=== PATIENT | male | born 1990 | race Caucasian/White ===

== ENCOUNTER 2022-06-06 10:03 | Inpatient (IN) | payer MEDICAID, SELFPAY ==
[2022-06-06 10:14] VITALS: BP 104/59; PULSE 89; RESP 17; TEMP 36.6; O2SAT 100
[2022-06-06 10:44] LABS: Bilirubin Moderate (Negative); Blood Large (Negative); Clarity Cloudy (Clear); Glucose 100 mg/dL (Negative); Ketones Trace mg/dL (Negative); Leukocyte Esterase Small (Negative); Nitrite Positive (Negative); Specific Gravity >= 1.030 (1.005-1.025); pH 5.5 (5-8)
[2022-06-06 10:54] LABS: Bacteria Moderate HPF (Negative); C & S Indicated? Yes; Casts 0-2 Hyaline LPF (Negative); Crystals Negative HPF (Negative); Epithelial Cells Few HPF (Negative); Mucus Heavy (Negative); Other Cells Few Transitional (Negative); RBC >50 HPF (0-2)
--- NOTE | 2022-06-06 12:59 | DI.CT_ITS ---
Exam(s) CT RENAL COLIC WO EXAM: CT RENAL COLIC WO CLINICAL HISTORY: Right flank pain and Bladder pain. TECHNIQUE: Imaging Protocol: Axial computed tomography images with coronal and sagittal reformatted images were created and reviewed. CONTRAST MATERIAL: Noncontrast COMPARISON: No exams were available for comparison FINDINGS: ABDOMEN: Lung Bases: Normal where visualized. Liver: Normal attenuation. No measurable mass. Gallbladder and biliary tract: Status post cholecystectomy. No radiodense calculus or dilation. Pancreas: Normal density, no calcifications or inflammatory process. Spleen: Normal. Kidneys: Normal size, contour and axis. No radiodense stones or obstructive uropathy. No masses seen. Adrenal glands: No masses seen. Abdominal Aorta: Abdominal portion non-dilated. PELVIS: Bladder: Nearly empty. Thick walled. Some air within the bladder. Bowel: Some high density material seen in distal small bowel. Suture material at base of cecum. No obstruction or bowel wall thickening. Peritoneal cavity: No ascites, collection or mesenteric inflammatory response. Reproductive: Prostate normal in size. Bones: Within normal limits. IMPRESSION: Thick-walled bladder which contains some air. Findings could indicate cystitis. There is no evidenc e renal calculi or hydronephrosis. Results of this exam have been verbally communicated with the emergency department provider. RADIATION DOSE DELIVERED: 769.98mGy.cm Total DLP DATA REPOSITORY: All CT scans at this facility are submitted to the National Radiology Data Registry (NRDR) Dose Index Registry (DIR) with the [employer] (ACR). RADIATION OPTIMIZATION: All CT scans at this facility use at least one of these dose optimization te chniques: automated exposure control; mA and/or kV adjustment per patient size (includes targeted exa ms where dose is matched to clinical indication); or iterative reconstruction.
[2022-06-06 13:16] LABS: Abs Immature Grans 0.02 10^3/uL (0.0-0.06); Absolute Eosinophil Count 1.02 10^3/uL (0.0-0.7); Absolute Lymphocyte Count 1.63 10^3/uL (1.2-3.4); Absolute Monocyte Count 0.53 10^3/uL (0.1-0.8); Basophils % 1.3; Eosinophils % 13.6; HCT 40.9 % (40.0-50.0); HGB 13.8 g/dL (13.5-17.5); Immature Grans % 0.3; Lymphocytes % 21.7; MCH 30.6 pg (27.0-33.0); MCHC 33.7 % (32.0-36.0); MCV 91 fL (80-95); MPV 10.9 fL (8.0-11.0); Monocytes % 7.1; Platelet Count 294 10^3/uL (130-400); RBC 4.51 10^6/uL (4.36-5.78); RDW 14.4 % (11.8-14.1)
[2022-06-06 13:18] LABS: Lactate 2.9 mmol/L (0.6-1.4)
[2022-06-06 13:34] LABS: ALT 22 U/L (16-63); AST 13 U/L (15-37); Albumin 3.8 g/dL (3.4-5.0); Alkaline Phosphatase 93 U/L (46-116); Anion Gap 7.8 mmol/L (3-11); BUN 48 mg/dL (7-18); Bilirubin, Total 0.5 mg/dL (0.2-1.0); CO2 30.2 mmol/L (21.0-32.0); Calcium 8.3 mg/dL (8.5-10.1); Chloride 90 mmol/L (98-107); Estimated GFR 19.88 (mL/min/1.73m2); Potassium 5.4 mmol/L (3.5-5.1); Sodium 128 mmol/L (136-145); Total Protein 7.4 g/dL (6.4-8.2)
[2022-06-06 13:42] LABS: CREATININE 3.6 mg/dL (0.70-1.30); Glucose 613 mg/dL (74-106)
[2022-06-06] MEDS: Ondansetron 4 MG/2 ML VIAL IVP (13:57)
[2022-06-06] MEDS: cefTRIAXone 1 GM/50 ML BAG IVPB (13:58)
[2022-06-06] MEDS: HYDROmorphone 2 MG/ML VIAL 1 MG IVP (14:00)
--- NOTE | 2022-06-06 14:05 | W.ED.GENAD ---
Discharge Plan Disposition Patient Disposition: [facility] INPATIENT Condition: Poor Discharge Details Clinical Impression: Acute UTI, HERVE (acute kidney injury), Hyperglycemia due to type 1 diabetes mellitus Admit Date/Time: 06/06/22 14:33 Admit Provider: Obed Kaur Attending Provider: Obed Kaur Primary Care Provider: None,None ED Provider: Donavon Aguero Discharge Data Discharge Date/Time-TO BE ENTERED AT DEPARTURE: 06/06/22 15:12 Medical Decision Making Patient presenting to the emergency department for chief complaint of significant suprapubic pain and discomfort. Patient reports that he has had blood in his urine intermittently for months after getting released from correction. He stated this started when he had surgery on his left lower extremity due to infection that was complicated by his diabetes. After that he had difficulty urinating and needed to self cath intermittently. Over the last 3 days he has noted significant worsening of lower abdominal pain, radiating into his flank and some blood in the urine. He did not take any of his diabetic medications this morning due to not feeling well. Physical exam shows mild right CVA tenderness with significant suprapubic tenderness causing patient to writhe in pain when attempting to lie flat. Exam is otherwise nondiagnostic. We will plan on checking labs and CT imaging Reviewed patient's labs which show no leukocytosis on CBC otherwise nondiagnostic, lactate of 2.9. Potassium was 5.4, normal anion gap, elevated BUN and creatinine with a GFR of 18, glucose of 619 otherwise nondiagnostic CMP. Urinalysis shows concentrated urine with trace urine ketones, nitrites, leukocyte Estrace with greater than 50 RBCs and 10-20 WBCs and bacteria present. Spoke with radiologist in regards to CT imaging which shows bladder wall thickening and findings consistent with cystitis but otherwise no other renal or intra-abdominal findings were noted. I am concerned for significant infection with patient's urinary findings and cystitis seen on CT imaging along with patient's lactate and CVA tenderness. I feel that patient is also hyperglycemic without DKA. We will start patient on insulin, ceftriaxone, and IV fluids. Contacted hospitalist for admission which he agreed for admission and requested we stop insulin drip due to no DKA but recommended to give patient his daily Lantus and IV push of normal insulin. Also requested for blood cultures which were ordered. COVID was ordered but pending HPI General Mode of arrival: ambulatory. Date/Time Provider Initiated Documentation: 06/06/22 10:22. Limitations to Documentation: no limitations. Information obtained by: patient and RN notes reviewed. History of Present Illness 32 year old M presents to the emergency department with the chief complaint of lower abd pain , described as severe, with intensity rated at >10. Quality is described as sharp and constant, and is localized to the abdomen. Patient reports radiation to back. Patient started experiencing this day(s) (3) and it has been constant. No relieving factors improve symptom(s), No exacerbating factors reported . Patient notes loss of appetite, malaise and nausea/vomiting. Patient did receive the following treatments prior to arrival, none Related Data Home Medications Medication Instructions Recorded Confirmed insulin NPH isoph U-100 human 100 See Rx Instructions .Route .COMPLEX 06/06/22 06/06/22 unit/mL subcutaneous cartridge insulin glargine 100 unit/mL (3 30 unit subcut BID 06/06/22 06/06/22 mL) subcutaneous pen (Lantus Solostar U-100 Insulin) Allergies Allergy/AdvReac Type Severity Reaction Status Date / Time enoxaparin [From Lovenox] AdvReac Mild Itching Unverified 06/06/22 10:23 ketorolac [From Toradol] AdvReac Mild Itching Unverified 06/06/22 10:23 tramadol AdvReac Mild Itching Unverified 06/06/22 10:23 General Stated Complaint: Urinary SAQIB: 3 Review of Systems Constitutional Constitutional: Denies body ache(s), Reports chills, Denies fever(s), Reports malaise and Denies weakness Cardiovascular Cardiovascular: Denies chest pain Respiratory Respiratory: Reports system reviewed and no additional complaints, except as documented Gastrointestinal Gastrointestinal: Denies abdominal pain, Denies nausea and Denies vomiting Genitourinary Genitourinary: Reports as per HPI, Denies hematuria, Reports difficulty urinating, Reports dysuria, Reports urinary urgency and Reports other (Change in urine color) Integumentary/Breasts Skin/Breast: Denies rash Neurologic Neurologic: Denies confusion and Denies weakness Psychiatric Psychiatric: Denies confusion PFSH All Active Problems (Updated 06/06/22 @ 17:31 by Obed Kaur MD) Bladder spasm (Acute) Cystitis (Acute) 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 (Acute) Acute UTI (Acute) HERVE (acute kidney injury) (Acute) Hyperglycemia due to type 1 diabetes mellitus (Acute) Medical History Diabetic retinopathy Surgical History S/P foot surgery, left Status post amputation of toe of left foot Family History Father Alcohol use disorder Mother Multiple myeloma Hypothyroidism (acquired) Sister Hypothyroidism (acquired) Maternal Grandfather , age 60 from [place] Heart disease Social History Smoking/Tobacco Use Status: Current every day Tobacco Type: cigarettes Smoking risk assessment performed?: Yes Alcohol Intake: former Drug use: Daily Substance use type: marijuana and other Details: he denies use of heroin or cocaine or other illicit recreational drugs Household members: family and other Details: lives w/ brother and maternal grandmother in [place], [place] Housing: house Do you feel safe at home: Yes Do you feel safe in your relationship?: Yes Exam Const General: cooperative Orientation: alert, awake and oriented x3 Resp Effort & Inspection: normal respiratory effort and able to speak in complete sentences Auscultation: clear to auscultation bilaterally Cardio Rate: regular rate Rhythm: regular rhythm Heart Sounds: S1 normal and S2 normal GI Palpation: soft, not firm, guarding, no masses, no pulsatile masses and tender suprapubicly Auscultation: normal bowel sounds General: CVA tenderness on the right (mild) Back/Spine/Pelvis Back: CVA tenderness (mild right) Neuro General: patient alert, patient awake, patient oriented x3, gait normal and moves all extremities Course Vital Signs Vital signs: Vital Signs Temperature 36.6 C 06/06/22 10:14 Pulse 89 06/06/22 10:14 Respiratory Rate 17 06/06/22 10:14 Blood Pressure 104/59 L 06/06/22 10:14 Pulse Oximetry 100 06/06/22 10:14 Temperature 36.6 C 06/06/22 10:14 Temperature Source Temporal Artery Scan 06/06/22 10:14 Pulse 89 06/06/22 10:14 Respiratory Rate 17 06/06/22 10:14 Respiratory Effort Non-Labored 06/06/22 10:20 Blood Pressure 104/59 L 06/06/22 10:14 Blood Pressure Position Sitting 06/06/22 10:14 Pulse Oximetry 100 06/06/22 10:14 Oxygen Delivery Method Room Air 06/06/22 10:14 Oxygen Flow Rate 0 06/06/22 10:14 Pain Level 8 06/06/22 14:00 Lab/Test Results Lab/Test Results: 06/06/22 10:37 Urine - Reflex from Ua Urine Culture - Pending Laboratory Tests Range/Units 06/06/22 06/06/22 06/06/22 10:37 13:12 13:12 WBC (4.4-10.8) 10^3/uL RBC (4.36-5.78) 10^6/uL Hgb (13.5-17.5) g/dL Hct (40.0-50.0) % MCV (80-95) fL MCH (27.0-33.0) pg MCHC (32.0-36.0) % RDW (11.8-14.1) % Plt Count (130-400) 10^3/uL MPV (8.0-11.0) fL Immature Gran % Neutrophils % Lymphocytes % Monocytes % Eosinophils % Basophils % Nucleated RBC % (0.0-0.3) % Absolute Neutrophils (1.2-6.7) 10^3/uL Absolute Lymphocytes (1.2-3.4) 10^3/uL Absolute Monocytes (0.1-0.8) 10^3/uL Absolute Eosinophils (0.0-0.7) 10^3/uL Absolute Basophils (0.0-0.2) 10^3/uL VBG Lactate (0.6-1.4) mmol/L 2.9 H* Sodium (136-145) mmol/L 128 L Potassium (3.5-5.1) mmol/L 5.4 H Chloride (98-107) mmol/L 90 L Carbon Dioxide (21.0-32.0) mmol/L 30.2 Anion Gap (3-11) mmol/L 7.8 BUN (7-18) mg/dL 48 H Creatinine (0.70-1.30) mg/dL 3.6 H* Estimated GFR/1.73 m2 (mL/min/1.73m2) 19.88 Glucose (74-106) mg/dL 613 H* Calcium (8.5-10.1) mg/dL 8.3 L Total Bilirubin (0.2-1.0) mg/dL 0.5 AST (15-37) U/L 13 L ALT (16-63) U/L 22 Alkaline Phosphatase (46-116) U/L 93 Total Protein (6.4-8.2) g/dL 7.4 Albumin (3.4-5.0) g/dL 3.8 Urine Color (Yellow) Yellow Urine Clarity (Clear) Cloudy Urine pH (5-8) 5.5 Ur Specific [place] (1.005-1.025) >= 1.030 H Urine Protein (Negative) mg/dL >=300 H Urine Ketones (Negative) mg/dL Trace H Urine Blood (Negative) Large H Urine Nitrite (Negative) Positive H Urine Bilirubin (Negative) Moderate H Urine Urobilinogen (Up TO 0.2) EU/dL 1.0 H Ur Leukocyte Esterase (Negative) Small H Urine RBC (0-2) HPF >50 H Urine WBC (0-5) HPF 10-20 H Ur Epithelial Cells (Negative) HPF Few Urine Crystals (Negative) HPF Negative Urine Bacteria (Negative) HPF Moderate Urine Casts (Negative) LPF 0-2 Hyaline Urine Mucus (Negative) Heavy Urine Other (Negative) Few Transitional Ur Culture Indicated? Yes Urine Glucose (Negative) mg/dL 100 Range/Units 06/06/22 13:12 WBC (4.4-10.8) 10^3/uL 7.50 RBC (4.36-5.78) 10^6/uL 4.51 Hgb (13.5-17.5) g/dL 13.8 Hct (40.0-50.0) % 40.9 MCV (80-95) fL 91 MCH (27.0-33.0) pg 30.6 MCHC (32.0-36.0) % 33.7 RDW (11.8-14.1) % 14.4 H Plt Count (130-400) 10^3/uL 294 MPV (8.0-11.0) fL 10.9 Immature Gran % 0.3 Neutrophils % 56.0 Lymphocytes % 21.7 Monocytes % 7.1 Eosinophils % 13.6 Basophils % 1.3 Nucleated RBC % (0.0-0.3) % 0.0 Absolute Neutrophils (1.2-6.7) 10^3/uL 4.20 Absolute Lymphocytes (1.2-3.4) 10^3/uL 1.63 Absolute Monocytes (0.1-0.8) 10^3/uL 0.53 Absolute Eosinophils (0.0-0.7) 10^3/uL 1.02 H Absolute Basophils (0.0-0.2) 10^3/uL 0.10 VBG Lactate (0.6-1.4) mmol/L Sodium (136-145) mmol/L Potassium (3.5-5.1) mmol/L Chloride (98-107) mmol/L Carbon Dioxide (21.0-32.0) mmol/L Anion Gap (3-11) mmol/L BUN (7-18) mg/dL Creatinine (0.70-1.30) mg/dL Estimated GFR/1.73 m2 (mL/min/1.73m2) Glucose (74-106) mg/dL Calcium (8.5-10.1) mg/dL Total Bilirubin (0.2-1.0) mg/dL AST (15-37) U/L ALT (16-63) U/L Alkaline Phosphatase (46-116) U/L Total Protein (6.4-8.2) g/dL Albumin (3.4-5.0) g/dL Urine Color (Yellow) Urine Clarity (Clear) Urine pH (5-8) Ur Specific [place] (1.005-1.025) Urine Protein (Negative) mg/dL Urine Ketones (Negative) mg/dL Urine Blood (Negative) Urine Nitrite (Negative) Urine Bilirubin (Negative) Urine Urobilinogen (Up TO 0.2) EU/dL Ur Leukocyte Esterase (Negative) Urine RBC (0-2) HPF Urine WBC (0-5) HPF Ur Epithelial Cells (Negative) HPF Urine Crystals (Negative) HPF Urine Bacteria (Negative) HPF Urine Casts (Negative) LPF Urine Mucus (Negative) Urine Other (Negative) Ur Culture Indicated? Urine Glucose (Negative) mg/dL PAWSS Have you Been Recently Intoxicated or Drunk Within the Last 30 days?: No Have you Ever Experienced Previous Episodes of Alcohol Withdrawal?: No Have you ever Experienced Withdrawal Seizures?: No Have you ever Experienced Delirium Tremens(DT)s?: No Have you ever undergone Alcohol Rehabilitation Treatment (i.e, inpt ot outpatient treatment programs)?: No Have you ever Experienced Blackouts?: No Have you ever Combined Alcohol with other Downers within the last 90 days?: No Have you ever Combined Alcohol with any other Substance of Abuse during the last 90 days?: No Result: 0
[2022-06-06] MEDS: Normal Saline 500 ML IV (14:11)
[2022-06-06 14:27] LABS: Source Nasal/Nares
[2022-06-06] MEDS: Insulin REGULAR-Human 100 UNITS/ML UNIT 15 UNITS IV (14:55)
[2022-06-06] MEDS: Insulin Glargine 300 UNITS/3 ML PEN 30 UNITS SC (14:55)
[2022-06-06 15:01] LABS: COVID-19 PCR Negative (Negative)
[2022-06-06 15:16] LABS: Hemoglobin A1C 9.9 % (<5.7)
[2022-06-06] MEDS: Lactated Ringers 1,000 ML 500 ML IV (15:53)
[2022-06-06] MEDS: Heparin 5,000 UNITS/ML VIAL 5000 UNITS SC ×2 (15:54→23:42)
[2022-06-06] MEDS: oxyCODONE 5 MG TAB PO ×2 (15:54→20:00)
[2022-06-06 16:00] VITALS: BP 110/67; PULSE 90; RESP 16; TEMP 36.2; O2SAT 96
[2022-06-06 16:39] LABS: Anion Gap 14.4 mmol/L (3-11); BUN 51 mg/dL (7-18); CO2 20.6 mmol/L (21.0-32.0); Calcium 8.5 mg/dL (8.5-10.1); Chloride 101 mmol/L (98-107); Estimated GFR 18.67 (mL/min/1.73m2); Glucose 319 mg/dL (74-106); Potassium 5.5 mmol/L (3.5-5.1); Sodium 136 mmol/L (136-145)
--- NOTE | 2022-06-06 16:39 | HPE_ITS ---
Date of service: 06/06/22 Time of Service: 16:39 Assessment and Plan Assessment and plan (1) Acute UTI: Status: Acute Assessment and plan: patient reports that he has had to self cath for last few days d/t difficulty initiating his voiding and d/t painful spasms. He has been voiding dark brown urine along w/ blood. No fever or chills. Prior to this he had to self cath while in intermediate for 15 months after he had multiple operations on his left foot and ankle and subsequent amputation of his left 5th toe. He states that after he got out of intermediate he stopped taking the medications he was on in intermediate (Rodger, Tanesha) and he was able to void fine until recently. UA is c/w w/ UTI (positive nitrites, small leukocyte esterase, large amount of blood, 10 to 20 WBC/HPF, moderate bacteria); blood cultures have been sent. Patient begun on Ceftriaxone 1 gm IVPB while in the ER. Will continue the same. I have added O&B suppository and ditropan for his bladder spasm. I will add pyridium and have ordered oxycodone for his pain. I do not feel he has pyelonephritis. I am not impressed w/ his flank pain as it is very superficial, bilateral and no CT evidence for stones or perinephric stranding nor abscess. the bladder wall is thickened c/w chronic urinary retention/prior cystitis; the air in the bladder probably is d/t introduction from straight catheterization which he has had to perform recently. I will check renal US in the a.m. I did a bladder scan and he has no urine in his bladder at present. We will hydrate him overnight w/ LR. We have no urology consultation available this week, so if he developes mechanical obstruction i.e. can not void/can not catheterize or gets ureteral obstruction then he will need transfer to tertiary care center for urology care. (2) Cystitis: Status: Acute Assessment and plan: as above (3) Bladder spasm: Status: Acute Assessment and plan: as above (4) HEVRE (acute kidney injury): Status: Acute Assessment and plan: unclear as to how much is chronic kidney disease from DM type 1, how much is from chronic urinary retention, although he has no hydronephrosis which one would expect to develope from months to couple years of self catheterization if he were having chronic large urinary residuals. (5) Hyperglycemia due to type 1 diabetes mellitus: Status: Acute Assessment and plan: incipient DKA as evidenced by trace ketones in urine however AG was normal and bicarbonate is normal. Hyperglycemia driven by fact that he did not take his insulin this morning. Ketonuria also may be d/t he has not eaten anything in the past day d/t nausea Review of Systems All systems reviewed & are unremarkable except as noted in HPI and below Constitutional Constitutional: Denies chills, Denies fever(s) and Reports poor appetite ENT Ears, Nose, Mouth, and Throat: Reports system reviewed and no additional complaints, except as documented Cardiovascular Cardiovascular: Reports system reviewed and no additional complaints, except as documented Respiratory Respiratory: Reports system reviewed and no additional complaints, except as documented Gastrointestinal Gastrointestinal: Reports abdominal pain (suprapubic) Genitourinary Genitourinary: Reports hematuria, Reports dysuria, Reports urinary hesitancy and Reports urinary urgency Musculoskeletal Musculoskeletal: Reports system reviewed and no additional complaints, except as documented Integumentary/Breasts Skin/Breast: Reports system reviewed and no additional complaints, except as documented Neurologic Neurologic: Reports paresthesias (both feet) Endocrine Endocrine: Reports system reviewed and no additional complaints, except as documented Hematologic/Lymphatic Hematologic/Lymphatic: Reports system reviewed and no additional complaints, except as documented PFSH All Active Problems (Updated 06/06/22 @ 17:31 by Obed Kaur MD) Bladder spasm (Acute) Cystitis (Acute) 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 (Acute) Acute UTI (Acute) HERVE (acute kidney injury) (Acute) Hyperglycemia due to type 1 diabetes mellitus (Acute) Medical History Diabetic retinopathy Surgical History S/P foot surgery, left Status post amputation of toe of left foot Family History Father Alcohol use disorder Mother Multiple myeloma Hypothyroidism (acquired) Sister Hypothyroidism (acquired) Maternal Grandfather , age 60 from [place] Heart disease Social History Smoking/Tobacco Use Status: Current every day Tobacco Type: cigarettes Smoking risk assessment performed?: Yes Alcohol Intake: former Drug use: Daily Substance use type: marijuana and other Details: he denies use of heroin or cocaine or other illicit recreational drugs Household members: family and other Details: lives w/ brother and maternal grandmother in [place], [place] Housing: house Do you feel safe at home: Yes Do you feel safe in your relationship?: Yes Meds Allergies and Home Medications Allergies Allergy/AdvReac Type Severity Reaction Status Date / Time enoxaparin [From Lovenox] AdvReac Mild Itching Unverified 06/06/22 10:23 ketorolac [From Toradol] AdvReac Mild Itching Unverified 06/06/22 10:23 tramadol AdvReac Mild Itching Unverified 06/06/22 10:23 Home Medications Medication Instructions Recorded Confirmed Type insulin NPH isoph U-100 human 100 See Rx Instructions .Route .COMPLEX 06/06/22 06/06/22 History unit/mL subcutaneous cartridge insulin glargine 100 unit/mL (3 30 unit subcut BID 06/06/22 06/06/22 History mL) subcutaneous pen (Lantus Solostar U-100 Insulin) Exam Narrative Exam Narrative: Young white male sitting up in bed in distress d/t suprapubic pain, he is leaning over holding his lower abdomen HEENT: remarkable for poor dentition, multiple missing teeth and dental caries; no foul odor, no exudate, mucous membranes are moist neck: supple, non-tender, no adenopathy, no thyromegaly; normal pulses Lungs: clear to auscultation Heart: RRR w/ out murmur, rub, gallop or thrill; normal apical impulse Abdomen: normal bowel sounds, nondistended, no organomegaly; voluntary gu arding; no rebound tenderness; very tender over suprapubic area; left and right flank were not tender when I was auscultating his lungs and I happened to place my stethoscope below the CV angle however when he was aware that I was purposely palpating for CVA tenderness he became tender bilaterally Legs/feet: no cyanosis or edema; pedal pulses intact; left foot w/ multiple scars over lateral tarsal and he has amputation site at 5th MP joint. no open sores Neuro: intact motor in all 4's, markedly decreased sensation over toes of both feet, he can tell that I am touching him but he can not discriminate which toe I am touching. Results Imaging Abdomen CT scan report/results: report reviewed (IMPRESSION: Thick- walled bladder which contains some air. Findings could indicate cystitis. There is no evidence renal calculi or hydronephrosis.) Labs Result diagrams: 06/06/22 13:12 06/06/22 16:24 Labs: Laboratory Results - last 24 hr 06/06/22 06/06/22 06/06/22 10:37 13:12 13:12 WBC RBC Hgb Hct MCV MCH MCHC RDW Plt Count MPV Immature Gran % Neutrophils % Lymphocytes % Monocytes % Eosinophils % Basophils % Nucleated RBC % Absolute Neutrophils Absolute Lymphocytes Absolute Monocytes Absolute Eosinophils Absolute Basophils VBG Lactate 2.9 H* Sodium 128 L Potassium 5.4 H Chloride 90 L Carbon Dioxide 30.2 Anion Gap 7.8 BUN 48 H Creatinine 3.6 H* Estimated GFR/1.73 m2 19.88 Glucose 613 H* Hemoglobin A1c Calcium 8.3 L Total Bilirubin 0.5 AST 13 L ALT 22 Alkaline Phosphatase 93 Total Protein 7.4 Albumin 3.8 Urine Color Yellow Urine Clarity Cloudy Urine pH 5.[address] [place] >= 1.030 H Urine Protein >=300 H Urine Ketones Trace H Urine Blood Large H Urine Nitrite Positive H Urine Bilirubin Moderate H Urine Urobilinogen 1.0 H Ur Leukocyte Esterase Small H Urine RBC >50 H Urine WBC 10-20 H Ur Epithelial Cells Few Urine Crystals Negative Urine Bacteria Moderate Urine Casts 0-2 Hyaline Urine Mucus Heavy Urine Other Few Transitional Ur Culture Indicated? Yes Urine Glucose 100 COVID-19 Source SARS-CoV-2 (PCR) 06/06/22 06/06/22 06/06/22 13:12 13:12 14:25 WBC 7.50 RBC 4.51 Hgb 13.8 Hct 40.9 MCV 91 MCH 30.6 MCHC 33.7 RDW 14.4 H Plt Count 294 MPV 10.9 Immature Gran % 0.3 Neutrophils % 56.0 Lymphocytes % 21.7 Monocytes % 7.1 Eosinophils % 13.6 Basophils % 1.3 Nucleated RBC % 0.0 Absolute Neutrophils 4.20 Absolute Lymphocytes 1.63 Absolute Monocytes 0.53 Absolute Eosinophils 1.02 H Absolute Basophils 0.10 VBG Lactate Sodium Potassium Chloride Carbon Dioxide Anion Gap BUN Creatinine Estimated GFR/1.73 m2 Glucose Hemoglobin A1c 9.9 H Calcium Total Bilirubin AST ALT Alkaline Phosphatase Total Protein Albumin Urine Color Urine Clarity Urine pH Ur Specific [place] Urine Protein Urine Ketones Urine Blood Urine Nitrite Urine Bilirubin Urine Urobilinogen Ur Leukocyte Esterase Urine RBC Urine WBC Ur Epithelial Cells Urine Crystals Urine Bacteria Urine Casts Urine Mucus Urine Other Ur Culture Indicated? Urine Glucose COVID-19 Source Nasal/Nares SARS-CoV-2 (PCR) Negative Last Vital Signs Temp 36.6 C 06/06/22 10:14 Pulse 89 06/06/22 10:14 Resp 17 06/06/22 10:14 BP 104/59 L 06/06/22 10:14 Pulse Ox 100 06/06/22 10:14 PAWSS Have you Been Recently Intoxicated or Drunk Within the Last 30 days?: No Have you Ever Experienced Previous Episodes of Alcohol Withdrawal?: No Have you ever Experienced Withdrawal Seizures?: No Have you ever Experienced Delirium Tremens(DT)s?: No Have you ever undergone Alcohol Rehabilitation Treatment (i.e, inpt ot outpatient treatment programs)?: No Have you ever Experienced Blackouts?: No Have you ever Combined Alcohol with other Downers within the last 90 days?: No Have you ever Combined Alcohol with any other Substance of Abuse during the last 90 days?: No Result: 0
[2022-06-06 16:42] LABS: CREATININE 3.8 mg/dL (0.70-1.30)
[2022-06-06] MEDS: Insulin Aspart 300 UNITS/3 ML PEN SC ×2 (17:14→17:29)
[2022-06-06] MEDS: Oxybutynin 5 MG TAB PO (17:28)
[2022-06-06 18:00] LABS: Lab Add On Test DONE
[2022-06-06 18:03] LABS: Creatine Kinase 200 U/L (39-308)
[2022-06-06 18:05] LABS: ESR 20 mm/hr (0-15)
[2022-06-06 19:33] VITALS: BP 89/55; PULSE 79; RESP 17; TEMP 36.9; O2SAT 97
[2022-06-06] MEDS: Acetaminophen 325 MG TAB PO (20:00)
[2022-06-06] MEDS: Lactated Ringers 1,000 ML 200 ML IV (20:04)
[2022-06-06 20:13] LABS: Lab Add On Test DONE
[2022-06-06] MEDS: Phenazopyridine 100 MG TAB PO (20:15)
[2022-06-06 20:36] LABS: Anion Gap 5.5 mmol/L (3-11); BUN 49 mg/dL (7-18); CO2 30.5 mmol/L (21.0-32.0); Calcium 8.2 mg/dL (8.5-10.1); Chloride 100 mmol/L (98-107); Estimated GFR 19.26 (mL/min/1.73m2); Glucose 126 mg/dL (74-106); Potassium 4.2 mmol/L (3.5-5.1); Sodium 136 mmol/L (136-145)
[2022-06-06 20:41] LABS: CREATININE 3.7 mg/dL (0.70-1.30)
[2022-06-06 20:42] LABS: C-Reactive Protein 0.35 mg/dL (0.0-0.3); PHOSPHORUS 3.3 mg/dL (2.6-4.7)
[2022-06-06 20:48] VITALS: BP 100/80
[2022-06-06 21:00] LABS: Procalcitonin 0.1 ng/mL
[2022-06-06 22:53] VITALS: BP 110/60; PULSE 74; RESP 18; TEMP 36; O2SAT 99
[2022-06-06] MEDS: HYDROmorphone 2 MG TAB PO (23:41)
[2022-06-07] VITALS (10 sets, daily range): BP systolic 81–135; BP diastolic 47–87; PULSE 60–77; RESP 16–18; TEMP 35.4–36.5; O2SAT 97–100
[2022-06-07] MEDS: Normal Saline Flush 10 ML SYR IVP ×5 (00:43→15:33)
[2022-06-07] MEDS: Lactated Ringers 1,000 ML 200 ML IV ×3 (00:44→17:02)
[2022-06-07] MEDS: HYDROmorphone 2 MG TAB PO ×5 (03:48→21:05)
[2022-06-07 05:07] LABS: Bilirubin Small (Negative); Blood Moderate (Negative); Clarity Sl Cloudy (Clear); Glucose 100 mg/dL (Negative); Ketones Trace mg/dL (Negative); Leukocyte Esterase Large (Negative); Nitrite Positive (Negative)
[2022-06-07 05:15] LABS: Bacteria Few HPF (Negative); Epithelial Cells Few HPF (Negative)
[2022-06-07 05:16] LABS: C & S Indicated? Yes; Casts 0-2 Hyaline LPF (Negative); Crystals Negative HPF (Negative); Mucus Negative (Negative); Other Cells Rare Renal (Negative)
--- NOTE | 2022-06-07 07:00 | DI.US_ITS ---
Exam(s) US RENAL EXAM: US RENAL CLINICAL HISTORY: UTI, flank pain, suprapubic pain. TECHNIQUE: Alcantar scale, color and spectral Doppler were used. COMPARISON: CT CT RENAL COLIC WO from 06/06/2022 FINDINGS: Renal size in cm: Right: 11 left: 12.4 Echogenicity: Normal Hydronephrosis: No Cyst or mass: No Nephrolithiasis: No Bladder:Fajardo catheter balloon noted, decompressing the bladder. Bladder is not well evaluated. Анна arent bladder wall thickening. IMPRESSION: Thick-walled bladder which is not well evaluated due to lack of distension. The kidneys appear leandro l. DATA REPOSITORY:
[2022-06-07 07:17] LABS: Abs Immature Grans 0.01 10^3/uL (0.0-0.06); Absolute Basophil Count 0.07 10^3/uL (0.0-0.2); Absolute Eosinophil Count 0.76 10^3/uL (0.0-0.7); Absolute Lymphocyte Count 2.04 10^3/uL (1.2-3.4); Absolute Monocyte Count 0.38 10^3/uL (0.1-0.8); Absolute Neutrophil Count 2.47 10^3/uL (1.2-6.7); Basophils % 1.2; Eosinophils % 13.3; HCT 34.4 % (40.0-50.0); HGB 11.4 g/dL (13.5-17.5); Immature Grans % 0.2; Lymphocytes % 35.6; MCH 30.5 pg (27.0-33.0); MCHC 33.1 % (32.0-36.0); MCV 92 fL (80-95); MPV 10.8 fL (8.0-11.0); Monocytes % 6.6; Neutrophils % 43.1; Platelet Count 216 10^3/uL (130-400); RBC 3.74 10^6/uL (4.36-5.78); RDW 14.6 % (11.8-14.1); RDW-SD 49.2 fL; WBC 5.73 10^3/uL (4.4-10.8)
[2022-06-07 07:25] LABS: Anion Gap 2.5 mmol/L (3-11); BUN 49 mg/dL (7-18); CO2 33.5 mmol/L (21.0-32.0); CREATININE 3.2 mg/dL (0.70-1.30); Calcium 7.7 mg/dL (8.5-10.1); Chloride 100 mmol/L (98-107); Estimated GFR 22.77 (mL/min/1.73m2); Glucose 184 mg/dL (74-106); Potassium 4.3 mmol/L (3.5-5.1); Sodium 136 mmol/L (136-145)
--- NOTE | 2022-06-07 07:55 | W.PM.PROGNOT ---
Date of Service Date of service: 06/07/22 Time of Service: 07:55 Assessment and Plan Assessment and plan (1) Acute UTI: Status: Acute Assessment and plan: Urinalysis consistent with UTI. Renal CT yesterday did not show any hydronephrosis or stones. Bladder scan shows 200 mL in his urine. I think he is still very dehydrated and will resume IV fluids. We will check a formal renal ultrasound today. Continue treatment of his bladder spasms with narcotic analgesics and opium and belladonna suppositories and Ditropan. Professional time spent interviewing and examining patient, discussion of goals of care with hospital team (care management, nursing and consulting professionals) was 30 minutes. (2) Cystitis: Status: Acute Assessment and plan: as above (3) Bladder spasm: Status: Acute Assessment and plan: as above (4) HERVE (acute kidney injury): Status: Acute Assessment and plan: unclear as to how much is chronic kidney disease from DM type 1, how much is from chronic urinary retention, although he has no hydronephrosis which one would expect to develope from months to couple years of self catheterization if he were having chronic large urinary residuals. Check formal renal ultrasound. (5) Hyperglycemia due to type 1 diabetes mellitus: Status: Acute Assessment and plan: Blood sugars are improved morning glucose this morning 157. He did get hypoglycemic last night down to 60. Continue basal bolus insulin along with meal coverage. He is currently on 2 units of NovoLog per 10 g of carbohydrates for meal coverage. He is on Lantus 30 units twice a day he has NovoLog sliding scale per insulin resistant level. Repeat labs this morning show resolution of his anion gap. Continue to monitor blood sugars before meals and at bedtime. Subjective Subjective Interval history since last seen: Patient still have significant suprapubic discomfort. His oxycodone was switched to hydromorphone. He only put out 50 mL of urine overnight. He still been doing self-catheterization. I have asked him to allow nursing to put in a Fajardo catheter. Bladder scan this morning demonstrated 200 mL of urine in his bladder. Renal ultrasound has been ordered. Exam Narrative Exam Narrative: Young white male sitting up in bed when heating pad over his suprapubic area. Lungs are clear to auscultation Heart is regular rate and rhythm Abdomen soft nondistended normal bowel sounds with moderate suprapubic tenderness no palpable masses. Objective Last Vital Signs Temp 36.0 C L 06/07/22 07:36 Pulse 65 06/07/22 07:36 Resp 17 06/07/22 07:36 BP 101/67 06/07/22 07:36 Pulse Ox 99 06/07/22 07:36 Laboratory Results - last 24 hr 06/06/22 06/06/22 06/06/22 10:37 13:12 13:12 WBC RBC Hgb Hct MCV MCH MCHC RDW Plt Count MPV Immature Gran % Neutrophils % Lymphocytes % Monocytes % Eosinophils % Basophils % Nucleated RBC % Absolute Neutrophils Absolute Lymphocytes Absolute Monocytes Absolute Eosinophils Absolute Basophils ESR VBG Lactate 2.9 H* Sodium 128 L Potassium 5.4 H Chloride 90 L Carbon Dioxide 30.2 Anion Gap 7.8 BUN 48 H Creatinine 3.6 H* Estimated GFR/1.73 m2 19.88 Glucose 613 H* Hemoglobin A1c Calcium 8.3 L Phosphorus Total Bilirubin 0.5 AST 13 L ALT 22 Alkaline Phosphatase 93 Creatine Kinase C-Reactive Protein Total Protein 7.4 Albumin 3.8 Procalcitonin Urine Color Yellow Urine Clarity Cloudy Urine pH 5.5 Ur Specific Staples >= 1.030 H Urine Protein >=300 H Urine Ketones Trace H Urine Blood Large H Urine Nitrite Positive H Urine Bilirubin Moderate H Urine Urobilinogen 1.0 H Ur Leukocyte Esterase Small H Urine RBC >50 H Urine WBC 10-20 H Ur Epithelial Cells Few Urine Crystals Negative Urine Bacteria Moderate Urine Casts 0-2 Hyaline Urine Mucus Heavy Urine Other Few Transitional Ur Culture Indicated? Yes Urine Glucose 100 COVID-19 Source SARS-CoV-2 (PCR) Add-On Test Request 06/06/22 06/06/22 06/06/22 13:12 13:12 13:12 WBC 7.50 RBC 4.51 Hgb 13.8 Hct 40.9 MCV 91 MCH 30.6 MCHC 33.7 RDW 14.4 H Plt Count 294 MPV 10.9 Immature Gran % 0.3 Neutrophils % 56.0 Lymphocytes % 21.7 Monocytes % 7.1 Eosinophils % 13.6 Basophils % 1.3 Nucleated RBC % 0.0 Absolute Neutrophils 4.20 Absolute Lymphocytes 1.63 Absolute Monocytes 0.53 Absolute Eosinophils 1.02 H Absolute Basophils 0.10 ESR 20 H VBG Lactate Sodium Potassium Chloride Carbon Dioxide Anion Gap BUN Creatinine Estimated GFR/1.73 m2 Glucose Hemoglobin A1c 9.9 H Calcium Phosphorus Total Bilirubin AST ALT Alkaline Phosphatase Creatine Kinase C-Reactive Protein Total Protein Albumin Procalcitonin Urine Color Urine Clarity Urine pH Ur Specific Staples Urine Protein Urine Ketones Urine Blood Urine Nitrite Urine Bilirubin Urine Urobilinogen Ur Leukocyte Esterase Urine RBC Urine WBC Ur Epithelial Cells Urine Crystals Urine Bacteria Urine Casts Urine Mucus Urine Other Ur Culture Indicated? Urine Glucose COVID-19 Source SARS-CoV-2 (PCR) Add-On Test Request 06/06/22 06/06/22 06/06/22 14:25 16:24 16:24 WBC RBC Hgb Hct MCV MCH MCHC RDW Plt Count MPV Immature Gran % Neutrophils % Lymphocytes % Monocytes % Eosinophils % Basophils % Nucleated RBC % Absolute Neutrophils Absolute Lymphocytes Absolute Monocytes Absolute Eosinophils Absolute Basophils ESR VBG Lactate Sodium 136 Potassium 5.5 H Chloride 101 Carbon Dioxide 20.6 L Anion Gap 14.4 H BUN 51 H Creatinine 3.8 H* Estimated GFR/1.73 m2 18.67 Glucose 319 H Hemoglobin A1c Calcium 8.5 Phosphorus Total Bilirubin AST ALT Alkaline Phosphatase Creatine Kinase 200 C-Reactive Protein Total Protein Albumin Procalcitonin Urine Color Urine Clarity Urine pH Ur Specific Staples Urine Protein Urine Ketones Urine Blood Urine Nitrite Urine Bilirubin Urine Urobilinogen Ur Leukocyte Esterase Urine RBC Urine WBC Ur Epithelial Cells Urine Crystals Urine Bacteria Urine Casts Urine Mucus Urine Other Ur Culture Indicated? Urine Glucose COVID-19 Source Nasal/Nares SARS-CoV-2 (PCR) Negative Add-On Test Request 06/06/22 06/06/22 06/06/22 19:55 19:55 19:55 WBC RBC Hgb Hct MCV MCH MCHC RDW Plt Count MPV Immature Gran % Neutrophils % Lymphocytes % Monocytes % Eosinophils % Basophils % Nucleated RBC % Absolute Neutrophils Absolute Lymphocytes Absolute Monocytes Absolute Eosinophils Absolute Basophils ESR VBG Lactate Sodium 136 Potassium 4.2 D Chloride 100 Carbon Dioxide 30.5 Anion Gap 5.5 BUN 49 H Creatinine 3.7 H* Estimated GFR/1.73 m2 19.26 Glucose 126 H Hemoglobin A1c Calcium 8.2 L Phosphorus Total Bilirubin AST ALT Alkaline Phosphatase Creatine Kinase C-Reactive Protein 0.35 H Total Protein Albumin Procalcitonin 0.1 Urine Color Urine Clarity Urine pH Ur Specific Staples Urine Protein Urine Ketones Urine Blood Urine Nitrite Urine Bilirubin Urine Urobilinogen Ur Leukocyte Esterase Urine RBC Urine WBC Ur Epithelial Cells Urine Crystals Urine Bacteria Urine Casts Urine Mucus Urine Other Ur Culture Indicated? Urine Glucose COVID-19 Source SARS-CoV-2 (PCR) Add-On Test Request 06/06/22 06/06/22 06/06/22 19:55 20:12 Unknown WBC RBC Hgb Hct MCV MCH MCHC RDW Plt Count MPV Immature Gran % Neutrophils % Lymphocytes % Monocytes % Eosinophils % Basophils % Nucleated RBC % Absolute Neutrophils Absolute Lymphocytes Absolute Monocytes Absolute Eosinophils Absolute Basophils ESR VBG Lactate Sodium Potassium Chloride Carbon Dioxide Anion Gap BUN Creatinine Estimated GFR/1.73 m2 Glucose Hemoglobin A1c Calcium Phosphorus 3.3 Total Bilirubin AST ALT Alkaline Phosphatase Creatine Kinase C-Reactive Protein Total Protein Albumin Procalcitonin Urine Color Urine Clarity Urine pH Ur Specific Staples Urine Protein Urine Ketones Urine Blood Urine Nitrite Urine Bilirubin Urine Urobilinogen Ur Leukocyte Esterase Urine RBC Urine WBC Ur Epithelial Cells Urine Crystals Urine Bacteria Urine Casts Urine Mucus Urine Other Ur Culture Indicated? Urine Glucose COVID-19 Source SARS-CoV-2 (PCR) Add-On Test Request DONE DONE 06/07/22 06/07/22 06/07/22 04:34 07:10 07:10 WBC 5.73 RBC 3.74 L Hgb 11.4 L D Hct 34.4 L MCV 92 MCH 30.5 MCHC 33.1 RDW 14.6 H Plt Count 216 MPV 10.8 Immature Gran % 0.2 Neutrophils % 43.1 Lymphocytes % 35.6 Monocytes % 6.6 Eosinophils % 13.3 Basophils % 1.2 Nucleated RBC % 0.0 Absolute Neutrophils 2.47 Absolute Lymphocytes 2.04 Absolute Monocytes 0.38 Absolute Eosinophils 0.76 H Absolute Basophils 0.07 ESR VBG Lactate Sodium 136 Potassium 4.3 Chloride 100 Carbon Dioxide 33.5 H Anion Gap 2.5 L BUN 49 H Creatinine 3.2 H Estimated GFR/1.73 m2 22.77 Glucose 184 H Hemoglobin A1c Calcium 7.7 L Phosphorus Total Bilirubin AST ALT Alkaline Phosphatase Creatine Kinase C-Reactive Protein Total Protein Albumin Procalcitonin Urine Color Hall Urine Clarity Sl Cloudy Urine pH 5.0 Ur Specific Staples 1.020 Urine Protein 100 H Urine Ketones Trace H Urine Blood Moderate H Urine Nitrite Positive H Urine Bilirubin Small H Urine Urobilinogen 1.0 H Ur Leukocyte Esterase Large H Urine RBC 10-20 H Urine WBC 10-20 H Ur Epithelial Cells Few Urine Crystals Negative Urine Bacteria Few Urine Casts 0-2 Hyaline Urine Mucus Negative Urine Other Rare Renal Ur Culture Indicated? Yes Urine Glucose 100 COVID-19 Source SARS-CoV-2 (PCR) Add-On Test Request PAWSS Have you Been Recently Intoxicated or Drunk Within the Last 30 days?: No Have you Ever Experienced Previous Episodes of Alcohol Withdrawal?: No Have you ever Experienced Withdrawal Seizures?: No Have you ever Experienced Delirium Tremens(DT)s?: No Have you ever undergone Alcohol Rehabilitation Treatment (i.e, inpt ot outpatient treatment programs)?: No Have you ever Experienced Blackouts?: No Have you ever Combined Alcohol with other Downers within the last 90 days?: No Have you ever Combined Alcohol with any other Substance of Abuse during the last 90 days?: No Result: 0
[2022-06-07] MEDS: Phenazopyridine 100 MG TAB PO ×3 (08:14→20:02)
[2022-06-07] MEDS: Oxybutynin 5 MG TAB PO ×2 (08:14→20:03)
[2022-06-07] MEDS: Heparin 5,000 UNITS/ML VIAL 5000 UNITS SC ×2 (08:14→15:25)
[2022-06-07] MEDS: Insulin Aspart 300 UNITS/3 ML PEN SC ×3 (08:16→22:13)
[2022-06-07] MEDS: Insulin Glargine 300 UNITS/3 ML PEN 30 UNITS SC (08:17)
[2022-06-07] MEDS: Ondansetron 4 MG/2 ML VIAL IVP ×2 (09:16→15:33)
[2022-06-07] MEDS: cefTRIAXone 1 GM/50 ML BAG IV (12:43)
[2022-06-07] MEDS: Docusate Sodium 100 MG CAP PO (12:43)
--- NOTE | 2022-06-07 15:38 | INITIAL_ITS ---
- If Service Date Differs Date of service: 06/07/22 Time of Service: 15:38 Care Management Initial Assess REASON FOR HOSPITALIZATION:: Hyperglycemia, UTI, Pyelonephritis PAST MEDICAL HISTORY/PAST SURGICAL HISTORY:: Medical History . Diabetic retinopathy. Surgical History . S/P foot surgery, left. Status post amputation of toe of left foot PREVIOUS FUNCTIONAL STATUS/SOCIAL/FAMILY SUPPORTS:: Reyes resides with his family in [place], [place]. He reports being unhappy with medical providers in his area, so traveling to [facility]. He identifies being independent at baseline. CURRENT FUNCTIONAL STATUS:: Reyes was lying in bed, watching television. He identified no concerns or needs at this time. ADVANCE DIRECTIVES:: None on file. Has patient been provided with info about the portal/API?: No Did the patient sign up for the portal?: No CODE STATUS:: Full Code INSURANCE COVERAGE / FINANCIAL ISSUES:: Medicaid CURRENT HOME/COMMUNITY SERVICES/EQUIPMENT:: BESSY: [facility]. PRIMARY CARE PHYSICIAN:: Titi PCP, awaiting appointment per Reyes's report. POTENTIAL DISCHARGE NEEDS:: Discuss community based supports. Follow up appointments. PATIENT/FAMILY EDUCATION NEEDS:: Review discharge instructions, discuss Ask Me [employer]. ANTICIPATED BARRIERS TO DISCHARGE:: None identified. TRANSPORTATION:: Via private vehicle with family. PLAN:: Reyes will return home when ready per MD. He reports plans to follow up with a PCP are in process. He also states he is already attached to [facility] CM named Aida. He will transport via private vehicle with family.
--- NOTE | 2022-06-07 16:37 | PHA.REVIEW ---
Pharmacy Admission Review - Admission Clinical Review (Last Reviewed 06/06/22 @ 17:26 by Obed Kaur MD) Bladder spasm (Acute) Cystitis (Acute) Acute UTI (Acute) HERVE (acute kidney injury) (Acute) Hyperglycemia due to type 1 diabetes mellitus (Acute) enoxaparin [From Lovenox] Adverse Reaction (Mild, Unverified 06/06/22 10:23) Itching ketorolac [From Toradol] Adverse Reaction (Mild, Unverified 06/06/22 10:23) Itching tramadol Adverse Reaction (Mild, Unverified 06/06/22 10:23) Itching Resuscitation Status Full Code Height 5 ft 9 in Weight 81.6 kg - Renal Dosing Renal Dosing: BUN 49 mg/dL (7-18) H 06/07/22 07:10 Creatinine 3.2 mg/dL (0.70-1.30) H 06/07/22 07:10 Medications needing adjustments: Reviewed (crcl = 38, slight improvement from yesterday (SCr 3.2 from 3.8). currently ordered meds do not need adjustment) - Anticoagulation Anticoagulation: Hgb 11.4 g/dL (13.5-17.5) L D 06/07/22 07:10 Hct 34.4 % (40.0-50.0) L 06/07/22 07:10 Plt Count 216 10^3/uL (130-400) 06/07/22 07:10 Creatinine 3.2 mg/dL (0.70-1.30) H 06/07/22 07:10 DVT Prophylaxis: Reviewed Medications: Heparin (heparin 5000 units Subq q8h) Therapeutic Anticoagulation: N/A - Opiate Usage Evaluate Pain Scale/Pains Meds: Reviewed (opium/beladonna suppository - has only received one dose + dilaudid 2 mg q4 prn - switched from oxycodone (has received 5 doses)) Scheduled Bowel Reg ordered if on Opiates?: No (PRN docusate, miralax) - Relevant Labs ESR 20 mm/hr (0-15) H 06/06/22 13:12 Sodium 136 mmol/L (136-145) 06/07/22 07:10 Potassium 4.3 mmol/L (3.5-5.1) 06/07/22 07:10 Chloride 100 mmol/L (98-107) 06/07/22 07:10 Phosphorus 3.3 mg/dL (2.6-4.7) 06/06/22 19:55 C-Reactive Protein 0.35 mg/dL (0.0-0.3) H 06/06/22 19:55 Electrolytes, C-Reactive P, ESR: Reviewed - DM Control DM Control: Glucose 184 mg/dL (74-106) H 06/07/22 07:10 Hemoglobin A1c 9.9 % (<5.7) H 06/06/22 13:12 Finger Stick Blood Glucose 152 Finger Stick Blood Glucose 152 Finger Stick Blood Glucose 94 Finger Stick Blood Glucose 94 Finger Stick Blood Glucose 87 Finger Stick Blood Glucose 87 Finger Stick Blood Glucose 87 Finger Stick Blood Glucose 87 Insulin Dosing: Reviewed (insulin aspart SS + 2 units per 10 g CHO with meals, insulin glargine 30 units BID) - Heart Failure/SD EF%, CAIN's, B-Blockers, Diuretics: N/A - BP Control BP Control: Blood Pressure 98/60 Blood Pressure 94/68 Blood Pressure 87/52 Blood Pressure 101/67 If elevated: N/A (BP WNL) - Qtc Review If Elevated: N/A (no EKG) - IV to PO Switch IV Medications: Reviewed (continue) - Home Meds Home Med List reviewed: Reviewed - Current meds Current Medication Order Review: Reviewed Antibiotic Activity - Pharmacy Antibiotic Review Pharmacy Antibiotic Activity: Reviewed, no change (ceftriaxone 1 gram daily for UTI, continue - preliminary urine culture showing gram negative rods, blood cx pending)
[2022-06-08] MEDS: Heparin 5,000 UNITS/ML VIAL 5000 UNITS SC ×4 (00:10→23:52)
[2022-06-08] MEDS: HYDROmorphone 2 MG TAB PO ×5 (01:41→21:57)
[2022-06-08 03:00] VITALS: BP 104/57; PULSE 65; RESP 17; TEMP 36.6; O2SAT 98
[2022-06-08 06:27] LABS: Platelet Count 196 10^3/uL (130-400)
[2022-06-08 07:27] LABS: Absolute Basophil Count 0.04 10^3/uL (0.0-0.2); Absolute Eosinophil Count 0.36 10^3/uL (0.0-0.7); Absolute Lymphocyte Count 1.36 10^3/uL (1.2-3.4); Absolute Monocyte Count 0.26 10^3/uL (0.1-0.8); Absolute Neutrophil Count 2.03 10^3/uL (1.2-6.7); Eosinophils % 8.9; HCT 30.7 % (40.0-50.0); Lymphocytes % 33.6; MCH 30.8 pg (27.0-33.0); MCHC 32.6 % (32.0-36.0); MCV 95 fL (80-95); MPV 11.5 fL (8.0-11.0); Monocytes % 6.4; Neutrophils % 50.1; Platelet Count 201 10^3/uL (130-400); RBC 3.25 10^6/uL (4.36-5.78); RDW 14.6 % (11.8-14.1); RDW-SD 51.1 fL; WBC 4.05 10^3/uL (4.4-10.8)
[2022-06-08 07:32] LABS: Anion Gap 2.6 mmol/L (3-11); BUN 36 mg/dL (7-18); CO2 33.4 mmol/L (21.0-32.0); CREATININE 2.1 mg/dL (0.70-1.30); Calcium 7.7 mg/dL (8.5-10.1); Chloride 104 mmol/L (98-107); Estimated GFR 37.02 (mL/min/1.73m2); Glucose 202 mg/dL (74-106); Magnesium 3.3 mg/dL (1.8-2.4); Potassium 4.7 mmol/L (3.5-5.1); Sodium 140 mmol/L (136-145)
[2022-06-08 07:33] VITALS: BP 113/66; PULSE 73; RESP 20; TEMP 36.6; O2SAT 97
[2022-06-08] MEDS: Phenazopyridine 100 MG TAB PO ×3 (09:03→20:45)
[2022-06-08] MEDS: Oxybutynin 5 MG TAB PO ×2 (09:03→20:45)
[2022-06-08] MEDS: Insulin Glargine 300 UNITS/3 ML PEN 30 UNITS SC (09:04)
[2022-06-08] MEDS: Insulin Aspart 300 UNITS/3 ML PEN SC ×5 (09:04→21:57)
[2022-06-08] MEDS: Ondansetron 4 MG/2 ML VIAL IVP (09:40)
[2022-06-08] MEDS: Normal Saline Flush 10 ML SYR IVP ×2 (09:40→13:23)
[2022-06-08 11:22] VITALS: BP 107/71; PULSE 71; RESP 20; TEMP 36; O2SAT 97
[2022-06-08] MEDS: cefTRIAXone 1 GM/50 ML BAG IV (13:03)
[2022-06-08] MEDS: Normal Saline 500 ML 30 ML IVPB (13:03)
--- NOTE | 2022-06-08 14:38 | W.PM.PROGNOT ---
Date of Service Date of service: 06/08/22 Time of Service: 10:50 Assessment and Plan Assessment and plan (1) Klebsiella cystitis: Status: Acute Assessment and plan: Present on admission, complicated, associated with neurogenic bladder/likely long-standing urinary retention. S/p gonzalez catheter. On ceftriaxone day 2. Continue ceftriaxone for now. Will need urology consult on Friday. (2) Bladder spasm: Status: Acute Assessment and plan: Continue opium/beladonna suppositories and ditropan. Consult urology (3) HERVE (acute kidney injury): Status: Acute Assessment and plan: Improving with IVF, gonzalez catheter, treatment of UTI. Continue IVF. (4) Neurogenic bladder: Status: Acute Assessment and plan: As above (5) Hyperglycemia due to type 1 diabetes mellitus: Status: Acute Assessment and plan: No hypoglycemic episodes today. BGs in 200s. Lantus increased to 35 units SC BID. Suspect hypoglycemic episode yesterday was due to decreased renal clearance of insulin in setting of HERVE. (6) DVT prophylaxis: Status: Acute Assessment and plan: SC heparin (7) Discharge planning issues: Status: Acute Assessment and plan: Full code Continues to require hospitalization. Subjective Subjective Interval history since last seen: Mr Gaines reports of lower abdominal cramping. He states dilaudid helps a little bit, but only lasts for a couple of hours. He had not yet received a suppository (opium/beladonna) when he was reporting this. He otherwise feels well. Denies dizziness, chest pain, shortness of breath, nausea. Exam Narrative Exam Narrative: General: Pleasant male who appears slightly uncomfortable, multiple tattoos, A&Ox3 HEENT: EOMI, MMM Heart: RRR, no m/r/g Lungs: CTAB Abdomen: soft, nontender, nondistended Extremities: +1 edema BLEs Objective Last Vital Signs Temp 36.0 C L 06/08/22 11:22 Pulse 71 06/08/22 11:22 Resp 20 06/08/22 11:22 BP 107/71 06/08/22 11:22 Pulse Ox 97 06/08/22 11:22 Laboratory Results - last 24 hr 06/08/22 06/08/22 06/08/22 06:10 06:10 06:10 WBC 4.05 L RBC 3.25 L Hgb 10.0 L Hct 30.7 L MCV 95 MCH 30.8 MCHC 32.6 RDW 14.6 H Plt Count 196 201 MPV 11.5 H Immature Gran % 0.0 Neutrophils % 50.1 Lymphocytes % 33.6 Monocytes % 6.4 Eosinophils % 8.9 Basophils % 1.0 Nucleated RBC % 0.0 Absolute Neutrophils 2.03 Absolute Lymphocytes 1.36 Absolute Monocytes 0.26 Absolute Eosinophils 0.36 Absolute Basophils 0.04 Sodium 140 Potassium 4.7 Chloride 104 Carbon Dioxide 33.4 H Anion Gap 2.6 L BUN 36 H Creatinine 2.1 H D Estimated GFR/1.73 m2 37.02 Glucose 202 H Calcium 7.7 L Magnesium 3.3 H PAWSS Have you Been Recently Intoxicated or Drunk Within the Last 30 days?: No Have you Ever Experienced Previous Episodes of Alcohol Withdrawal?: No Have you ever Experienced Withdrawal Seizures?: No Have you ever Experienced Delirium Tremens(DT)s?: No Have you ever undergone Alcohol Rehabilitation Treatment (i.e, inpt ot outpatient treatment programs)?: No Have you ever Experienced Blackouts?: No Have you ever Combined Alcohol with other Downers within the last 90 days?: No Have you ever Combined Alcohol with any other Substance of Abuse during the last 90 days?: No Result: 0
[2022-06-08 15:13] VITALS: BP 109/70; PULSE 69; RESP 18; TEMP 36; O2SAT 95
[2022-06-08] MEDS: Dextrose 50%-Water 25 GM/50 ML SYR IVP ×2 (15:34→16:54)
--- NOTE | 2022-06-08 18:09 | NUR.NOTE ---
Nursing Note: At 1530 reported FS of 47 by peer nurse as patient complained of feeling symptomatic. 12.5 gm of dextrose IVP administered. started trending patients finger sticks. next was improved, he is given sharita crackers and peanut butter. Next finger stick was 70, and at 1634 was given another 12.5 gm of dextrose. Patient did eat some dinner ,including a cup of soup. Follow up FS post prandial was 154. Also during this time frame patient c/o gas pain. MD notified. She strongly felt that it was bladder spasms and suggested he have a B&O suppository administered. Patient does accept the recommendation and this is administered at 1745
[2022-06-08 19:07] VITALS: BP 110/71; PULSE 98; RESP 16; TEMP 36.1; O2SAT 97
--- NOTE | 2022-06-08 19:20 | NUR.NOTE ---
Nursing Note: I have reviewed Gayla Chilel's documentation and find it complete.
[2022-06-08] MEDS: Insulin Glargine 300 UNITS/3 ML PEN 35 UNITS SC (20:45)
[2022-06-08 22:09] VITALS: BP 116/73; PULSE 69; RESP 18; TEMP 36.7; O2SAT 96
[2022-06-08] MEDS: Acetaminophen 325 MG TAB PO (23:52)
[2022-06-09] MEDS: HYDROmorphone 2 MG TAB PO ×4 (02:32→19:57)
[2022-06-09] MEDS: Nicotine 21 MG/24 HR PATCH TD (03:07)
[2022-06-09 03:08] VITALS: BP 113/71; PULSE 68; RESP 18; TEMP 36.7; O2SAT 99
[2022-06-09] MEDS: Docusate Sodium 100 MG CAP PO ×3 (03:08→19:58)
[2022-06-09 06:55] LABS: Abs Immature Grans 0.01 10^3/uL (0.0-0.06); Absolute Basophil Count 0.05 10^3/uL (0.0-0.2); Absolute Eosinophil Count 0.46 10^3/uL (0.0-0.7); Absolute Lymphocyte Count 1.45 10^3/uL (1.2-3.4); Absolute Monocyte Count 0.32 10^3/uL (0.1-0.8); Eosinophils % 9.4; HCT 31.3 % (40.0-50.0); HGB 10.3 g/dL (13.5-17.5); Immature Grans % 0.2; Lymphocytes % 29.7; MCH 30.5 pg (27.0-33.0); MCHC 32.9 % (32.0-36.0); MCV 93 fL (80-95); MPV 11.3 fL (8.0-11.0); Monocytes % 6.5; Neutrophils % 53.2; Platelet Count 202 10^3/uL (130-400); RBC 3.38 10^6/uL (4.36-5.78); RDW 14.6 % (11.8-14.1); RDW-SD 49.8 fL; WBC 4.89 10^3/uL (4.4-10.8)
[2022-06-09 07:10] LABS: Anion Gap 1.8 mmol/L (3-11); BUN 25 mg/dL (7-18); CO2 34.2 mmol/L (21.0-32.0); CREATININE 1.6 mg/dL (0.70-1.30); Chloride 103 mmol/L (98-107); Estimated GFR 50.67 (mL/min/1.73m2); Glucose 169 mg/dL (74-106); Magnesium 2.9 mg/dL (1.8-2.4); Potassium 4.7 mmol/L (3.5-5.1); Sodium 139 mmol/L (136-145)
[2022-06-09 07:18] VITALS: BP 116/77; PULSE 66; RESP 18; TEMP 36; O2SAT 96
[2022-06-09] MEDS: Oxybutynin 5 MG TAB PO (08:17)
[2022-06-09] MEDS: Heparin 5,000 UNITS/ML VIAL 5000 UNITS SC ×2 (08:17→17:44)
[2022-06-09] MEDS: Phenazopyridine 100 MG TAB PO ×3 (08:17→19:58)
--- NOTE | 2022-06-09 10:23 | PGE_ITS ---
Date of Service Date of service: 06/09/22 Time of Service: 10:23 Assessment and Plan Assessment and plan (1) Klebsiella cystitis: Status: Acute Assessment and plan: Present on admission, complicated, associated with neurogenic bladder/likely long-standing urinary retention. S/p gonzalez catheter. Continue ceftriaxone day 3. Await urology consult tomorrow. No evidence of stones or obstructive uropathy on imaging, though does have thickened bladder. (2) Bladder spasm: Status: Acute Assessment and plan: Continue opium/beladonna suppositories. D/c ditropan as I think it is contributing to gastroparesis. Add mirabegron. Await urology consult. Janett regimen. (3) Diabetic gastroparesis: Status: Suspected Assessment and plan: D/c ditropan - could worsen gastroparesis. Introduce reglan and bowel regimen as is also on opioids, which could complicate the picture. Will eventually need a GES. (4) HERVE (acute kidney injury): Status: Acute Assessment and plan: Improving with IVF, gonzalez catheter, treatment of UTI. Continue IVF overnight; plan to d/c them tomorrow. (5) Neurogenic bladder: Status: Acute Assessment and plan: As above (6) Hyperglycemia due to type 1 diabetes mellitus: Status: Resolved Assessment and plan: BGs better. FBG today is 169 by chemistry. Continue lantus 35 units SC BID. Suspect hypoglycemic episode on this admission was due to decreased renal clearance of insulin in setting of HERVE. (7) DVT prophylaxis: Status: Acute Assessment and plan: SC heparin (8) Discharge planning issues: Status: Acute Assessment and plan: Full code Continues to require hospitalization. Subjective Subjective Interval history since last seen: Mr Gaines continues to report lower abdominal pain, not better with suppositories. This morning he also feels bloated. He denies dizziness, chest pain, shortness of breath, nausea. He does feel like there is air in the stomach which he also describes as bloating. He has epigastric discomfort and states he has not had belching or flatus today. Last BM last night - normal. We discussed how he could have both gastroparesis and/or opioid induced constipati on. He does describe that at home he sometimes feels like the food does not get digested and he vomits it. He does not formally francisca a diagnosis of gastroparesis. Exam Narrative Exam Narrative: General: Pleasant male who remains slightly uncomfortable, multiple tattoos, A&Ox3 HEENT: EOMI, MMM Heart: RRR, no m/r/g Lungs: CTAB Abdomen: soft, tender suprapubically and epigastrically, nondistended Extremities: +1 edema BLEs, s/p amputation L 5th toe. Objective Last Vital Signs Temp 36 C L 06/09/22 07:18 Pulse 66 06/09/22 07:18 Resp 18 06/09/22 07:18 BP 116/77 06/09/22 07:18 Pulse Ox 96 06/09/22 07:18 Laboratory Results - last 24 hr 06/09/22 06/09/22 06:17 06:17 WBC 4.89 RBC 3.38 L Hgb 10.3 L Hct 31.3 L MCV 93 MCH 30.5 MCHC 32.9 RDW 14.6 H Plt Count 202 MPV 11.3 H Immature Gran % 0.2 Neutrophils % 53.2 Lymphocytes % 29.7 Monocytes % 6.5 Eosinophils % 9.4 Basophils % 1.0 Nucleated RBC % 0.0 Absolute Neutrophils 2.60 Absolute Lymphocytes 1.45 Absolute Monocytes 0.32 Absolute Eosinophils 0.46 Absolute Basophils 0.05 Sodium 139 Potassium 4.7 Chloride 103 Carbon Dioxide 34.2 H Anion Gap 1.8 L BUN 25 H Creatinine 1.6 H Estimated GFR/1.73 m2 50.67 Glucose 169 H Calcium 8.0 L Magnesium 2.9 H PAWSS Have you Been Recently Intoxicated or Drunk Within the Last 30 days?: No Have you Ever Experienced Previous Episodes of Alcohol Withdrawal?: No Have you ever Experienced Withdrawal Seizures?: No Have you ever Experienced Delirium Tremens(DT)s?: No Have you ever undergone Alcohol Rehabilitation Treatment (i.e, inpt ot outpatient treatment programs)?: No Have you ever Experienced Blackouts?: No Have you ever Combined Alcohol with other Downers within the last 90 days?: No Have you ever Combined Alcohol with any other Substance of Abuse during the last 90 days?: No Result: 0
[2022-06-09] MEDS: Mirabegron 25 MG TABCR PO (10:55)
[2022-06-09] MEDS: Metoclopramide 10 MG TAB 5 MG PO ×3 (10:55→21:52)
[2022-06-09 11:45] VITALS: BP 150/94; PULSE 71; RESP 18; TEMP 36.4; O2SAT 98
[2022-06-09] MEDS: Normal Saline 500 ML 30 ML IVPB (12:26)
[2022-06-09] MEDS: cefTRIAXone 1 GM/50 ML BAG IV (12:26)
[2022-06-09] MEDS: Insulin Aspart 300 UNITS/3 ML PEN SC ×5 (12:35→21:54)
[2022-06-09] MEDS: Normal Saline Flush 10 ML SYR IVP ×2 (12:38→19:58)
--- NOTE | 2022-06-09 14:33 | W.ANESVAS ---
Midline Placement Date Performed: 06/09/22 Procedure Time: 14:20 Requesting Provider: Lindsey Wilson Procedure Location: Med/Surg Sedation Given (Indicate Dose Given): No Sedation given Patient Mental Status: Awake Sterility: Hand Hygiene, Surgical Cap, Surgical Mask, Sterile Gloves, Sterile Drape/Sheet and Chlorhexidine Laterality: Right Insertion Site: Basilic Midline Device: PowerGlide Pro 18G Catheter Length: 10 cm Midline Procedure Procedure: 1% Lidocaine to skin and subcutaneous tissue with 25g needle, Guidewire placed with ease and Catheter placed without resistance Dressing: Tegaderm Applied and Statlock Applied Blood Return: Present Flushes: Easily Ultrasound: Sterile probe cover and gel used Ultrasound Image Saved?: No Number of Attempts (See previous attempts in note section): 1 Procedure Tolerated: No Complications Procedure Outcome: Successful Performed By: Brando Drew
[2022-06-09 15:45] VITALS: BP 117/74; PULSE 70; RESP 18; TEMP 36.4; O2SAT 98
--- NOTE | 2022-06-09 18:37 | NUR.NOTE ---
Nursing Note: insulin orders were changed by the provider. lantus increased to 40. Aspart changes from resistance moderate scale. carb count reduced. current carb scale 1 unit to 10 grams carbs. no hypoglycemic episodes on our shift
--- NOTE | 2022-06-09 18:37 | NUR.NOTE ---
Nursing Note: I have reviewd the documentation of Gayla Chilel LPN and find it thorough.
[2022-06-09 19:47] VITALS: BP 144/87; PULSE 77; RESP 20; TEMP 36.7; O2SAT 96
[2022-06-09] MEDS: Insulin Glargine 300 UNITS/3 ML PEN 40 UNITS SC (21:53)
[2022-06-09 22:18] VITALS: BP 110/65; PULSE 68; RESP 20; TEMP 36.7; O2SAT 97
[2022-06-10] MEDS: Heparin 5,000 UNITS/ML VIAL 5000 UNITS SC ×2 (00:15→08:30)
[2022-06-10] MEDS: HYDROmorphone 2 MG TAB PO ×3 (00:15→10:30)
[2022-06-10 03:15] VITALS: BP 115/75; PULSE 65; RESP 18; TEMP 36.7; O2SAT 98
[2022-06-10 07:39] LABS: Abs Immature Grans 0.01 10^3/uL (0.0-0.06); Absolute Basophil Count 0.06 10^3/uL (0.0-0.2); Absolute Lymphocyte Count 1.71 10^3/uL (1.2-3.4); Absolute Monocyte Count 0.44 10^3/uL (0.1-0.8); Absolute Neutrophil Count 2.11 10^3/uL (1.2-6.7); Basophils % 1.2; Eosinophils % 12.2; HGB 10.1 g/dL (13.5-17.5); Immature Grans % 0.2; Lymphocytes % 34.7; MCH 30.5 pg (27.0-33.0); MCHC 32.6 % (32.0-36.0); MCV 94 fL (80-95); MPV 11.5 fL (8.0-11.0); Monocytes % 8.9; Neutrophils % 42.8; Platelet Count 195 10^3/uL (130-400); RBC 3.31 10^6/uL (4.36-5.78); RDW 14.6 % (11.8-14.1); RDW-SD 49.9 fL; WBC 4.93 10^3/uL (4.4-10.8)
[2022-06-10 07:43] VITALS: BP 144/87; PULSE 73; RESP 18; TEMP 36.4; O2SAT 97
--- NOTE | 2022-06-10 07:44 | W.UROLOGYCON ---
Date of service: 06/10/22 Time of Service: 07:58 Assessment and Plan Assessment and plan (1) Neurogenic bladder: Status: Acute (2) Klebsiella cystitis: Status: Acute Assessment and plan: We do not have access to any old urology records, so I believe we are obligated to start his work-up from scratch. He presented with gross hematuria which may be related to his urinary tract infection. Ultimately, he would need a repeat urinalysis once he is on a more regimented program of CIC and we can document that his infection has been cleared. If there is still significant hematuria (greater than 3-5 red cells per high-powered field) he would need a hematuria work-up which would include a cystoscopy and retrograde pyelogram. He has already had renal ultrasounds and noncontrast CT scans, so we know there is no significant stone disease in his kidneys or renal masses. For his neurogenic bladder, I agree that Myrbetriq would be a much better choice for this gentleman than an anticholinergic medicine. The patient has been experiencing GI symptoms and anticholinergics can make these even worse. I would suggest a starting point of timed voiding and clean intermittent catheterization 4 times a day. I will ask the patient to keep a voided volume versus catheteriozed volume chart and we can adjust the frequency of catheterizations based on the volumes obtained. We recommend keeping the catheterized volume less than 500 cc. Typically, we would recommend a urodynamic study to make sure he does not have a high pressure bladder. Given [place] and his lack of hydronephrosis on ultrasound and CT, I am fairly confident that he has a low pressure bladder for now. History of Present Illness History of Present Illness Chief Complaint: Neurogenic bladder Narrative: This is a 32-year-old gentleman who is new to our area. He previously received his medical care while he was incarcerated in the [facility]. He describes developing urinary retention following surgery on his foot. At first, the retention was thought to be related to anesthesia effects. When the retention persisted, he was started on CIC and was seen by a urologist. He describes a test which is consistent with a urodynamic study. I do not have the results of the test, but from what the patient describes, it took forever to fill his bladder and he had to strain to empty. He continued to perform CIC and was started on some medications to try to get his bladder to empty. He developed a urinary tract infection and was started on an antibiotic. He had not completed his course of antibiotics when he was [facility] about 2 months ago. He did not have access to additional antibiotics at the time of his release. He was however sent home with CIC supplies. He has had persistent symptoms including blood in the urine and foul-smelling urine since then. He describes some flank pain but no fever or chills. He has noticed some air in the end of the urinary stream. He actually presented to the emergency department at [facility] about 2 weeks ago but he tells me they would not provide him with a catheter to give a urine sample. He did take some antibiotic for a dental infection, but did not receive any specific antibiotic for UTI. He has not had any prior history of kidney stones or urologic surgeries. Consults Consult date: 06/10/22 Review of Systems Narrative: No fevers or chills No vision change or dysphasia Diabetes mellitus. 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 (Acute) Acute UTI (Acute) HERVE (acute kidney injury) (Acute) Medical History (Updated 06/09/22 @ 10:29 by Lindsey Wilson MD) Diabetic retinopathy Surgical History S/P foot surgery, left Status post amputation of toe of left foot Family History Father Alcohol use disorder Mother Multiple myeloma Hypothyroidism (acquired) Sister Hypothyroidism (acquired) Maternal Grandfather , age 60 from [place] Heart disease Social History Smoking/Tobacco Use Status: Current every day Tobacco Type: cigarettes Smoking risk assessment performed?: Yes Alcohol Intake: former Drug use: Daily Substance use type: marijuana and other Details: he denies use of heroin or cocaine or other illicit recreational drugs Household members: family and other Details: lives w/ brother and maternal grandmother in [place], [place] Housing: house Do you feel safe at home: Yes Do you feel safe in your relationship?: Yes Exam Narrative Exam Narrative: He is in no obvious distress. He is cooperative. His vital signs are documented elsewhere His abdomen is soft with no guarding or rebound tenderness His urine is draining orange-tinged urine (he has been receiving Pyridium) He is awake and alert I reviewed his CT scan and renal ultrasound on the PACS system. There is no significant hydronephrosis on either study. There is no perinephric abscess or stone that would require a surgical procedure. There is air in the lumen of the bladder but not in the bladder wall. His urine culture initially grew Klebsiella. A repeat culture grew gram-positive's only. Results Last Vital Signs Temp 36.7 C 06/10/22 03:15 Pulse 65 06/10/22 03:15 Resp 18 06/10/22 03:15 BP 115/75 06/10/22 03:15 Pulse Ox 98 06/10/22 03:15 Labs Result diagrams: 06/10/22 06:30 06/10/22 06:30 Labs: Laboratory Results - last 24 hr 06/10/22 06:30 WBC 4.93 RBC 3.31 L Hgb 10.1 L Hct 31.0 L MCV 94 MCH 30.5 MCHC 32.6 RDW 14.6 H Plt Count 195 MPV 11.5 H Immature Gran % 0.2 Neutrophils % 42.8 Lymphocytes % 34.7 Monocytes % 8.9 Eosinophils % 12.2 Basophils % 1.2 Nucleated RBC % 0.0 Absolute Neutrophils 2.11 Absolute Lymphocytes 1.71 Absolute Monocytes 0.44 Absolute Eosinophils 0.60 Absolute Basophils 0.06
[2022-06-10 07:46] LABS: Anion Gap 2.2 mmol/L (3-11); BUN 21 mg/dL (7-18); CO2 34.8 mmol/L (21.0-32.0); CREATININE 1.5 mg/dL (0.70-1.30); Calcium 8.2 mg/dL (8.5-10.1); Chloride 104 mmol/L (98-107); Estimated GFR 54.59 (mL/min/1.73m2); Glucose 89 mg/dL (74-106); Magnesium 2.4 mg/dL (1.8-2.4); Potassium 4.8 mmol/L (3.5-5.1); Sodium 141 mmol/L (136-145)
[2022-06-10] MEDS: Polyethylene Glycol 3350 17 GM PACKET PO (08:30)
[2022-06-10] MEDS: Mirabegron 25 MG TABCR PO (08:31)
[2022-06-10] MEDS: Phenazopyridine 100 MG TAB PO ×2 (08:31→14:25)
[2022-06-10] MEDS: Docusate Sodium 100 MG CAP PO (08:31)
[2022-06-10] MEDS: Metoclopramide 10 MG TAB 5 MG PO ×2 (08:31→12:23)
--- NOTE | 2022-06-10 09:20 | W.PM.PROGNOT ---
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 Exam Narrative Exam Narrative: General: Pleasant male who appears slightly uncomfortable, multiple tattoos, A&Ox3 HEENT: EOMI, MMM Heart: RRR, no m/r/g Lungs: CTAB Abdomen: soft, nontender, nondistended Extremities: +1 edema BLEs Objective Last Vital Signs Temp 36.4 C L 06/10/22 07:43 Pulse 73 06/10/22 07:43 Resp 18 06/10/22 07:43 BP 144/87 H 06/10/22 07:43 Pulse Ox 97 06/10/22 07:43 Laboratory Results - last 24 hr 06/10/22 06/10/22 06:30 06:30 WBC 4.93 RBC 3.31 L Hgb 10.1 L Hct 31.0 L MCV 94 MCH 30.5 MCHC 32.6 RDW 14.6 H Plt Count 195 MPV 11.5 H Immature Gran % 0.2 Neutrophils % 42.8 Lymphocytes % 34.7 Monocytes % 8.9 Eosinophils % 12.2 Basophils % 1.2 Nucleated RBC % 0.0 Absolute Neutrophils 2.11 Absolute Lymphocytes 1.71 Absolute Monocytes 0.44 Absolute Eosinophils 0.60 Absolute Basophils 0.06 Sodium 141 Potassium 4.8 Chloride 104 Carbon Dioxide 34.8 H Anion Gap 2.2 L BUN 21 H Creatinine 1.5 H Estimated GFR/1.73 m2 54.59 Glucose 89 Calcium 8.2 L Magnesium 2.4 PAWSS Have you Been Recently Intoxicated or Drunk Within the Last 30 days?: No Have you Ever Experienced Previous Episodes of Alcohol Withdrawal?: No Have you ever Experienced Withdrawal Seizures?: No Have you ever Experienced Delirium Tremens(DT)s?: No Have you ever undergone Alcohol Rehabilitation Treatment (i.e, inpt ot outpatient treatment programs)?: No Have you ever Experienced Blackouts?: No Have you ever Combined Alcohol with other Downers within the last 90 days?: No Have you ever Combined Alcohol with any other Substance of Abuse during the last 90 days?: No Result: 0
[2022-06-10] MEDS: DEXTROSE 5%-LACTATED RINGERS 1,000 ML 125 ML IV (09:26)
[2022-06-10] MEDS: Acetaminophen 325 MG TAB PO (09:28)
[2022-06-10] MEDS: LORazepam 1 MG TAB PO (12:23)
[2022-06-10] MEDS: cefTRIAXone 1 GM/50 ML BAG IV (12:25)
--- NOTE | 2022-06-10 12:25 | W.PM.DS.N ---
Date of service: 06/10/22 Time of Service: 10:00 DS: Diagnosis Discharge Diagnosis (1) Neurogenic bladder: Status: Acute (2) Klebsiella cystitis: Status: Acute Discharge Plan Disposition Patient Disposition: HOME Condition: Poor Discharge Details Reason For Visit: Hyperglycemia,Uti,Pyelonephritis Admit Date/Time: 06/06/22 14:33 Admit Provider: Obed Kaur Attending Provider: Obed Kaur Primary Care Provider: None,None Hospital Course Hospital Course: This 32 year old male patient presented to the [facility] emergency department with reports that he has had to self cath for last few days d/t difficulty initiating his voiding and d/t painful spasms. He has been voiding dark brown urine along w/ blood. No fever or chills. Prior to this he had to self cath while in senior living for 15 months after he had multiple operations on his left foot and ankle and subsequent amputation of his left 5th toe. He states that after he got out of senior living he stopped taking the medications he was on in senior living ([place], [place]) and he was able to void fine until recently. UA is c/w w/ UTI (positive nitrites, small leukocyte esterase, large amount of blood, 10 to 20 WBC/HPF, moderate bacteria); blood cultures have been sent. Patient begun on Ceftriaxone 1 gm IVPB while in the ER.? He received O&B suppository and ditropan for his bladder spasm, pyridium and oxycodone for his pain. Urology was consulted and saw him here. Dr Gonzalez recommended clean intermittent catheterization four times a day. Follow up with the office.? He was seen by the simulation educator and provided with a glucose reader.? He requested to go home, he is medically stable.? He was discharged to home. Referral to [facility] for PCP>. Home Meds and New Rx's Prescriptions: New polyethylene glycol 3350 17 gram Powder In Packet 17 g PO DAILY Qty: 0 0RF phenazopyridine 100 mg Tablet 100 mg PO TID Qty: 12 0RF Myrbetriq 25 mg Tablet Extended Release 24 Hr 25 mg PO DAILY Qty: 30 0RF metoclopramide HCl 10 mg Tablet 5 mg PO AC & HS Qty: 20 0RF docusate sodium [Colace] 100 mg Capsule 100 mg PO BID Qty: 0 0RF oxycodone-acetaminophen [Percocet] 5-325 mg tablet 1 tab PO Q6H PRNQty: 10 0RF lorazepam 1 mg tablet 1 mg PO TID PRNQty: 10 0RF naloxone [Narcan] 4 mg/actuation spray,non-aerosol 4 mg intranasal Q2M PRNQty: 2 0RF Rx Instructions: spray 1 dose into ONE nostril; alternate nostrils w each dose until help arrives (DME) insulin syringe-needle U-100 0.3 mL 30 syringe See Rx Instructions .Route Qty: 100 0RF Rx Instructions: As directed cefpodoxime 200 mg tablet 200 mg PO BID Qty: 18 0RF Rx Instructions: must administer with a meal/food (DME) Dexcom G6 Grain Broker Misc See Rx Instructions .Route Qty: 1 0RF Rx Instructions: As directed (DME) Dexcom G6 Sensor Device See Rx Instructions .Route Qty: 3 1RF Rx Instructions: As directed Continued insulin NPH isoph U-100 human 100 unit/mL Cartridge See Rx Instructions .ROUTE .COMPLEX Rx Instructions: sliding scale insulin glargine [Lantus Solostar U-100 Insulin] 100 unit/mL (3 mL) Insulin Pen 30 unit SUBCUT BID Discharge Instructions Instructions: Phenazopyridine (By mouth), Oxycodone/Acetaminophen (By mouth), Lorazepam (By mouth), Cefpodoxime Proxetil (By mouth), Mirabegron (By mouth), Constipation (DC), Urinary Tract Infection in Men (DC) Additional Instructions: Clean intermittent cauterizations four times a day. Keep a voided volume versus catheterized volume chart to bring to your appointment with the urologist for adjusting the frequency of catheterizing based on the volumes obtained. It is recommended to keep the volumes under 500 ml. You should have a urine checked for infection after you have finished your antibiotics, it has been ordered. Follow up with urolology June 27 at 10:00 am. They will call you from [facility] with an appointment with PCP. Stand Alone Forms: Nursing Discharge Form Referrals: JENIFER BURGESS [RN FOR MSM OR] - (office will call you with a appointment with a PCP.) Fred Gonzalez MD [ [facility] STAFF PHYSICIAN] - 06/27/22 10:00 am Activity:: Activity as Tolerated Equipment/Supplies:: No Equipment Needed Diet:: Carb Counting Discharge Orders Discharge Orders: Discharge Order (Routine); Ordered 06/10/22 Ordered By: Isha Villegas Other Ambulatory Orders: Urinalysis (Routine) Timeframe: 2 Weeks Location: None Selected Ordered By: Isha Villegas Discharge Data Discharge Date/Time-TO BE ENTERED AT DEPARTURE: 06/10/22 14:54 DS: Summary Time Spent with Patient providing and/or coordinating discharge services: Less than 30 minutes Status at Discharge Functional status at discharge: independent ambulation Overall status at discharge: patient is back to baseline Mental Status: mental status grossly normal Speech and Movement: speech and movement normal Mood: congruent mood Affect: normal affect Exam Psych Mental Status: mental status grossly normal Speech and Movement: speech and movement normal Mood: congruent mood Affect: normal affect DS: Data Vitals/I&O Vitals and I&O: Vital Signs Temperature 36.4 C L 06/10/22 07:43 Temperature Source Tympanic 06/10/22 07:43 Pulse 73 06/10/22 07:43 Pulse Rhythm Regular 06/10/22 08:45 Respiratory Rate 18 06/10/22 07:43 Respiratory Effort Non-Labored 06/10/22 08:45 Respiratory Depth Normal 06/10/22 08:45 Respiratory Pattern Normal 06/10/22 08:45 Blood Pressure 144/87 H 06/10/22 07:43 Blood Pressure Position Sitting 06/06/22 10:14 Pulse Oximetry 97 06/10/22 07:43 Oxygen Delivery Method Room Air 06/10/22 07:43 Oxygen Flow Rate 0 06/10/22 07:43 Pain Level 7 06/10/22 12:23 Comment 06/09/22 11:45 Intake & Output 06/09/22 06/10/22 06/10/22 23:59 11:59 23:59 Intake Total 250 / 750 240 / 240 Output Total 900 / 2250 1800 / 1800 Balance -650 / -1500 -1560 / -1560 Weight 85.871 kg Intake: Oral 250 / 250 240 / 240 Output: Urine 900 / 2250 1800 / 1800 Other: Urine Color Morrow Morrow Urine Appearance Sediment Clear Comment pyridium patient taking pyridium Data Completed and Pending Labs on day of discharge: Labs from last 24 hours 06/10/22 06/10/22 06:30 06:30 WBC 4.93 RBC 3.31 L Hgb 10.1 L Hct 31.0 L MCV 94 MCH 30.5 MCHC 32.6 RDW 14.6 H Plt Count 195 MPV 11.5 H Immature Gran % 0.2 Neutrophils % 42.8 Lymphocytes % 34.7 Monocytes % 8.9 Eosinophils % 12.2 Basophils % 1.2 Nucleated RBC % 0.0 Absolute Neutrophils 2.11 Absolute Lymphocytes 1.71 Absolute Monocytes 0.44 Absolute Eosinophils 0.60 Absolute Basophils 0.06 Sodium 141 Potassium 4.8 Chloride 104 Carbon Dioxide 34.8 H Anion Gap 2.2 L BUN 21 H Creatinine 1.5 H Estimated GFR/1.73 m2 54.59 Glucose 89 Calcium 8.2 L Magnesium 2.4 Preliminary micro results at discharge 06/06/22 07:10 Blood Culture - Preliminary Blood NO GROWTH 72 HOURS 06/06/22 14:55 Blood Culture - Preliminary Blood NO GROWTH 72 HOURS PFSH All Active Problems (Updated 06/11/22 @ 00:07 by RUFINO LINCOLN) Neurogenic bladder (Acute) Klebsiella cystitis (Acute) Bladder spasm (Acute) Cystitis (Acute) 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 (Acute) Acute UTI (Acute) HERVE (acute kidney injury) (Acute) Medical History (Updated 06/11/22 @ 00:07 by RUFINO LINCOLN) Diabetic retinopathy Surgical History S/P foot surgery, left Status post amputation of toe of left foot Family History Father Alcohol use disorder Mother Multiple myeloma Hypothyroidism (acquired) Sister Hypothyroidism (acquired) Maternal Grandfather , age 60 from [place] Heart disease Social History Smoking/Tobacco Use Status: Current every day Tobacco Type: cigarettes Smoking risk assessment performed?: Yes Alcohol Intake: former Drug use: Daily Substance use type: marijuana and other Details: he denies use of heroin or cocaine or other illicit recreational drugs Household members: family and other Details: lives w/ brother and maternal grandmother in [place], [place] Housing: house Do you feel safe at home: Yes Do you feel safe in your relationship?: Yes
[2022-06-10] MEDS: Normal Saline 500 ML 30 ML IVPB (12:26)
[2022-06-10] MEDS: Insulin Aspart 300 UNITS/3 ML PEN SC (12:29)
[2022-06-10] MEDS: Bacitracin 1 PACKET (15:04)
--- NOTE | 2022-06-10 15:10 | DM INPTCON_ITS ---
Date of service: 06/10/22 Time of Service: 15:10 Diabetes Inpatient Consult Reason for Visit: DM DESCRIPTION/ASSESSMENT: Met with Jeffrey prior to discharge. Has had Dm1 since childhood. [place] recently [facility] [place] [facility]. A1C (06/06/22): 9.9% indicates poor glycemic control. Home DM meds: lantus, novolog. PMH: gastroparesis, nuerogenic bladder, s/p two amputation. BMI 28 Jeffrey reports that he wants to get a CGM and insulin pump to better manage his Dm1. INTERVENTION: Discharge order will include Dexcom reader and 6 dexcom sensors. Encouraged Jeffrey to follow up with auto service writer in OP setting for Dm education. PLAN: Will follow up with Jeffrey 14 days after discharge to discuss blood sugar control. Time Spent in Nutritional Counseling and Treatment: 25
--- NOTE | 2022-06-10 16:36 | PDOC.CMDIS ---
- If Service Date Differs Date of service: 06/10/22 Time of Service: 16:36 Care Management Discharge Reason for Hospitalization: Hyperglycemia, UTI, Pyelonephritis
--- NOTE | 2022-06-10 16:43 | PDOC.CMDIS ---
- If Service Date Differs Date of service: 06/10/22 Time of Service: 16:44 LACE Index Scoring Tool - Questions: Length of Stay (in days): 4 - 6 Acuity (Admit via E.D.?): Yes Comorbidities: Diabetes w/o Complication E.D. Visits: 1 - Answers: Total Score: 9 Risk of Readmission: Low Risk Care Management Discharge Reason for Hospitalization: Hyperglycemia, UTI, Pyelonephritis Discharge Plan: Reyes will return home when ready per MD. He will be provided a PCP appointment for follow up and connect with [facility] RN JARETT Parra, as well. Suly, neonatal doctor reports providing diabetic monitoring system. Reyes will transport via private vehicle with family. JARETT provided last dose letter for employer, [employer]. Patient/Family Education Needs: Review discharge instructions, discuss Ask Me Three.
--- NOTE | 2022-06-21 18:57 | DSE_ITS ---
DS: Diagnosis Discharge Diagnosis (1) Neurogenic bladder: Status: Chronic (2) Klebsiella cystitis: Status: Resolved Discharge Plan Disposition Patient Disposition: HOME Condition: Poor Discharge Details Reason For Visit: Hyperglycemia,Uti,Pyelonephritis Admit Date/Time: 06/06/22 14:33 Admit Provider: Obed Kaur Attending Provider: Obed Kaur Primary Care Provider: None,None Hospital Course Hospital Course: This 32 year old male patient presented to the [facility] emergency department with reports that he has had to self cath for last few days d/t difficulty initiating his voiding and d/t painful spasms. He has been voiding dark brown urine along w/ blood. No fever or chills. Prior to this he had to self cath while in nursing home for 15 months after he had multiple operations on his left foot and ankle and subsequent amputation of his left 5th toe. He states that after he got out of nursing home he stopped taking the medications he was on in nursing home ([place], [place]) and he was able to void fine until recently. UA is c/w w/ UTI (positive nitrites, small leukocyte esterase, large amount of blood, 10 to 20 WBC/HPF, moderate bacteria); blood cultures have been sent. Patient begun on Ceftriaxone 1 gm IVPB while in the ER.? He received O&B suppository and ditropan for his bladder spasm, pyridium and oxycodone for his p ain. Urology was consulted and saw him here. Dr Gonzalez recommended clean intermittent catheterization four times a day. Follow up with the office.? He was seen by the community health educator and provided with a glucose reader.? He requested to go home, he is medically stable.? He was discharged to home. Referral to [facility] for PCP>. Home Meds and New Rx's Prescriptions: New polyethylene glycol 3350 17 gram Powder In Packet 17 g PO DAILY Qty: 0 0RF docusate sodium [Colace] 100 mg Capsule 100 mg PO BID Qty: 0 0RF naloxone [Narcan] 4 mg/actuation spray,non-aerosol 4 mg intranasal Q2M PRNQty: 2 0RF Rx Instructions: spray 1 dose into ONE nostril; alternate nostrils w each dose until help arrives (DME) Novapost G6 Transmitter Device See Rx Instructions .Route Qty: 1 0RF Rx Instructions: As directed Continued insulin NPH isoph U-100 human 100 unit/mL Cartridge See Rx Instructions .ROUTE .COMPLEX Rx Instructions: sliding scale insulin glargine [Lantus Solostar U-100 Insulin] 100 unit/mL (3 mL) Insulin Pen 30 unit SUBCUT BID No Action (DME) Dexcom G6 Supervisor Cleaning And Annealing Misc See Rx Instructions .Route Qty: 1 3RF Rx Instructions: Continuous glucose monitor (DME) Dexcom G6 Sensor Device See Rx Instructions .Route Qty: 3 1RF Rx Instructions: Continuous glucose monitor (DME) blood-glucose meter [OneTouch Ultra2 Meter] Misc See Rx Instructions .Route Qty: 1 4RF Rx Instructions: Check blood sugar 4 times a day (DME) blood sugar diagnostic Strip See Rx Instructions .ROUTE .MEDSUPPLY Qty: 200 4RF Rx Instructions: Check blood sugar four times a day (DME) lancets [BD Ultra-Fine II Lancets] 30 gauge misc See Rx Instructions .Route Qty: 200 3RF Rx Instructions: Check blood sugar four times a day gabapentin 600 mg tablet 300 - 600 mg PO BID Qty: 180 0RF Rx Instructions: Take half a tablet twice a day for one week then increase to 1 tablet twice a day Myrbetriq 25 mg tablet extended release 24 hr 25 mg PO DAILY Qty: 90 0RF (DME) insulin syringe-needle U-100 0.3 mL 30 syringe See Rx Instructions .Route Qty: 100 0RF Rx Instructions: As directed Discharge Instructions Instructions: Phenazopyridine (By mouth), Oxycodone/Acetaminophen (By mouth), Lorazepam (By mouth), Cefpodoxime Proxetil (By mouth), Mirabegron (By mouth), Constipation (DC), Urinary Tract Infection in Men (DC) Additional Instructions: Clean intermittent cauterizations four times a day. Keep a voided volume versus catheterized volume chart to bring to your appointment with the urologist for adjusting the frequency of catheterizing based on the volumes obtained. It is recommended to keep the volumes under 500 ml. You should have a urine checked for infection after you have finished your antibiotics, it has been ordered. Follow up with urolology June 27 at 10:00 am. They will call you from [facility] with an appointment with PCP. Stand Alone Forms: Nursing Discharge Form Referrals: JENIFER BURGESS [RN FOR MSM OR] - (office will call you with a appointment with a PCP.) Fred Gonzalez MD [ [facility] STAFF PHYSICIAN] - 06/27/22 10:00 am Activity:: Activity as Tolerated Equipment/Supplies:: No Equipment Needed Diet:: Carb Counting Discharge Orders Discharge Orders: Discharge Order (Routine); Ordered 06/10/22 Ordered By: Isha Villegas Other Ambulatory Orders: Urinalysis (Routine) Timeframe: 2 Weeks Location: None Selected Ordered By: Isha Villegas Discharge Data Discharge Date/Time-TO BE ENTERED AT DEPARTURE: 06/10/22 14:54 DS: Summary Time Spent with Patient providing and/or coordinating discharge services: Less than 30 minutes Status at Discharge Functional status at discharge: independent ambulation Overall status at discharge: patient is progressing back to baseline Mental Status: mental status grossly normal Speech and Movement: speech and movement normal Mood: congruent mood Affect: normal affect Exam Psych Mental Status: mental status grossly normal Speech and Movement: speech and movement normal Mood: congruent mood Affect: normal affect DS: Data Vitals/I&O Vitals and I&O: Vital Signs Temperature 36.4 C L 06/10/22 07:43 Temperature Source Tympanic 06/10/22 07:43 Pulse 73 06/10/22 07:43 Pulse Rhythm Regular 06/10/22 08:45 Respiratory Rate 18 06/10/22 07:43 Respiratory Effort Non-Labored 06/10/22 08:45 Respiratory Depth Normal 06/10/22 08:45 Respiratory Pattern Normal 06/10/22 08:45 Blood Pressure 144/87 H 06/10/22 07:43 Blood Pressure Position Sitting 06/06/22 10:14 Pulse Oximetry 97 06/10/22 07:43 Oxygen Delivery Method Room Air 06/10/22 07:43 Oxygen Flow Rate 0 06/10/22 07:43 Pain Level 7 06/10/22 12:23 Comment 06/09/22 11:45 PFSH All Active Problems (Updated 06/21/22 @ 00:05 by RUFINO LINCOLN) Type 1 diabetes mellitus (Chronic) Diabetic gastroparesis (Chronic) Neurogenic bladder (Chronic) Medical History (Updated 06/21/22 @ 00:05 by RUFINO LINCOLN) HERVE (acute kidney injury) Diabetic retinopathy Surgical History S/P foot surgery, left Status post amputation of toe of left foot Family History Father Alcohol use disorder Mother Multiple myeloma Hypothyroidism (acquired) Sister Hypothyroidism (acquired) Maternal Grandfather , age 60 from [place] Heart disease Social History Smoking/Tobacco Use Status: Current every day Tobacco Type: cigarettes Smoking risk assessment performed?: Yes Alcohol Intake: former Drug use: Daily Substance use type: marijuana and other Details: he denies use of heroin or cocaine or other illicit recreational drugs Household members: family and other Details: lives w/ brother and maternal grandmother in [place], [place] Housing: house Do you feel safe at home: Yes Do you feel safe in your relationship?: Yes
== END 2022-06-10 14:54 | disposition home or self-care (01) | DRG 699 ==
LOC: ER 15:08 → MS 15:14
PROVIDERS: Emergency Medicine; Internal Medicine; Admitting Provider Internal Medicine; Emergency Provider Nurse Practitioner Family; Visit Provider Internal Medicine
DX: N31.9 Neuromuscular dysfunction of bladder, unspecified (principal); N17.9 Acute kidney failure, unspecified; N30.00 Acute cystitis without hematuria; E10.65 Type 1 diabetes mellitus with hyperglycemia; B96.1 Klebsiella pneumoniae [K. pneumoniae] as the cause of diseases classified elsewhere; E10.43 Type 1 diabetes mellitus with diabetic autonomic (poly)neuropathy; K31.84 Gastroparesis; E10.42 Type 1 diabetes mellitus with diabetic polyneuropathy; N32.89 Other specified disorders of bladder; E10.319 Type 1 diabetes mellitus with unspecified diabetic retinopathy without macular edema; Z89.422 Acquired absence of other left toe(s); F17.210 Nicotine dependence, cigarettes, uncomplicated; R33.9 Retention of urine, unspecified; E10.649 Type 1 diabetes mellitus with hypoglycemia without coma; F12.90 Cannabis use, unspecified, uncomplicated
CPT/HCPCS: 36415; 76770; 80048; 80053; 82550; 84145; 85652; 87040; 87077; 87635; 96361; 96365; 96375; 99285; 74176; 81003; 81015; 83036; 83605; 83735; 84100; 85025; 85049; 86140; 87086; 87186; 99222; 99232; 99238; 99284; J0696; J1644; J2405

== ENCOUNTER 2022-06-27 03:59 | Outpatient (CLI) | payer MEDICAID, SELFPAY ==
--- NOTE | 2022-06-27 11:00 | NS.NUTBLAN_ITS ---
Reyes and his twin sister attended today's diabetes self management education session. PMH: neurogenic bladder, gastroparesis, DM1 Reyes was discharged 2 weeks ago from [facility] with DKA, UTI. PMH: DM1 since age 10. Recently [facility] and reports that his blood sugars were not well managed during incarceration. He reports that he has been vomiting daily since discharge while on reglan and since he ran out of his regaln. He is able to tolerate liquids such as cup of soup and boost. Wt: 175 lbs 5'7 BMI 24 DM meds: 30 units lantus BID, novolog sliding scale. take 2 units filiberto for every 50 units above 150 mg/dl. Total Daily Dose: 90 units Correction factor: 1:20 Carb/insulin ratio: 1:5 Diet Recall: 2 bites banana for B, cup of soup for L, 2 boosts, string cheese, popsicle. Reports that he can go 24-36 hours without eating. Keeps up on his liqiud intake. Blood sugar: reports most days blood sugars > 300 mg/dl. He does correct 1:25 ratio. No hypoglycemic episodes in last 14 days. Reports blood sugars > 300 mg/dl on days he lissette drinks water. Seen by urology today. No active infection per patient- scheduled for procedure next week. Session today focused on how to place and program Dexcom 6 district resource officer and sensor. Low blood sugar set at 70 mg/dl, high alert set at 250 mg/dl. Encouraged 1:20 correction with novolog to keep blood sugars <200 mg/dl most of day. Also, reviewed importance of eating consistently- encouraged Reyes to consume minimum of 1000 kcal per day by drinking 3 boosts daily and supplement with foods he tolerates. Reviewed hyper and hypoglycemia treatment. Will need refill of REGLAN alis and referral to GI for stomach emptying study. Has referral out for [facility] endocrine for DM management. Follow up 07/08/22 at 1 pm for data down load.
== END 2022-06-27 04:00 | disposition home or self-care (01) ==
LOC: DS 03:59
PROVIDERS: Visit Provider Dietitian, Registered
DX: E10.9 Type 1 diabetes mellitus without complications (principal); Z79.4 Long term (current) use of insulin; Z71.3 Dietary counseling and surveillance
CPT/HCPCS: 97802

== ENCOUNTER 2022-07-08 07:08 | Day surgery (SDC) | payer MEDICAID, SELFPAY ==
[2022-07-08 07:30] VITALS: BP 150/98; PULSE 84; RESP 20; TEMP 36.5; O2SAT 100
--- NOTE | 2022-07-08 07:44 | W.PM.HP.N ---
Date of service: 07/08/22 Time of Service: 07:44 Assessment and Plan Assessment and plan (1) Microscopic hematuria: Status: Acute Assessment and plan: We will complete his hematuria workup with a cystoscopy and retrograde pyelogram. We will inject Botox into the detrusor muscle for his neurogenic bladder. He already performs CIC. (2) Neurogenic bladder: Status: Chronic History of Present Illness History of Present Illness Chief Complaint: Microscopic hematuria Narrative: This is a 32-year-old gentleman who was seen while he was hospitalized for a urinary tract infection.? His culture grew Klebsiella.? He was having significant suprapubic discomfort and was treated with Myrbetriq 25 mg daily.? He does not believe that there has been any improvement in the bladder discomfort related to Myrbetriq. He has a history of chronic constipation and we have not been willing to start him on anticholinergics. He has a history of incomplete bladder emptying and performs CIC.? All of his previous urologic work-up (including what sounds like a urodynamic study) was done on in [place] He has had persistent microscopic hematuria even after his UTI has cleared. He presents for cystoscopy with retrograde pyelogram to complete his hematuria workup. He has been able to void on his own and perform CIC at times.? He does not really have any pain while he voids, the pain seems worse when he is not voiding. He is not seeing any gross hematuria.? He has no fever or chills.? He has completed his antibiotics. Review of Systems Narrative: No fevers or chills No vision change or dysphasia Hx diabetes with gastroparesis. No thyroid dysfunction No shortness of breath, cough or hemoptysis No chest pain or palpitations No nausea, vomiting, hepatitis, ulcers, jaundice, diarrhea or constipation No seizures or strokes No bleeding disorders or anemia No gout or arthralgia PFSH All Active Problems Neurogenic bladder (Chronic) Diabetic gastroparesis (Chronic) Type 1 diabetes mellitus (Chronic) Microscopic hematuria (Acute) Medical History HERVE (acute kidney injury) Diabetic retinopathy Retinal detachment Surgical History H/O detached retina repair History of appendectomy Hx of cholecystectomy S/P foot surgery, left Status post amputation of toe of left foot Family History Father Alcohol use disorder Mother Multiple myeloma Hypothyroidism (acquired) Sister Hypothyroidism (acquired) Maternal Grandfather , age 60 from [place] Heart disease Social History Smoking/Tobacco Use Status: Current every day Tobacco Type: cigarettes Smoking risk assessment performed?: Yes Alcohol Intake: former Drug use: Daily Substance use type: marijuana and other Details: he denies use of heroin or cocaine or other illicit recreational drugs Details: last use of marijuana 07/07/22 afternoon Household members: family and other Details: lives w/ brother and maternal grandmother in [place], [place] Housing: house Do you feel safe at home: Yes Do you feel safe in your relationship?: Yes Additional Social history: unable to assess privately 07/07/22 Meds Allergies and Home Medications Allergies Allergy/AdvReac Type Severity Reaction Status Date / Time enoxaparin [From Lovenox] AdvReac Mild Itching Unverified 07/08/22 07:38 ketorolac [From Toradol] AdvReac Mild Itching Unverified 07/08/22 07:38 tramadol AdvReac Mild Itching Unverified 07/08/22 07:38 Home Medications Medication Instructions Recorded Confirmed Type insulin glargine 100 unit/mL (3 30 unit subcut BID 06/06/22 07/08/22 History mL) subcutaneous pen (Lantus Solostar U-100 Insulin) naloxone 4 mg/actuation nasal 4 mg intranasal Q2M PRN #2 ea 06/10/22 07/08/22 Rx spray (Narcan) blood sugar diagnostic #200 ea 06/20/22 07/05/22 Rx blood-glucose meter (OneTouch #1 ea 06/20/22 07/05/22 Rx Ultra2 Meter) blood-glucose meter,continuous #1 ea 06/20/22 07/05/22 Rx (Dexcom G6 Pediatric Oncology Nurse misc) blood-glucose sensor (Dexcom G6 #3 ea 06/20/22 07/05/22 Rx Sensor device) gabapentin 600 mg tablet 300 - 600 mg PO BID #180 tabs 06/20/22 07/08/22 Rx insulin syringe-needle U-100 0.3 #100 ea 06/20/22 07/05/22 Rx mL 30 lancets 30 gauge (BD Ultra-Fine II #200 ea 06/20/22 07/05/22 Rx Lancets) blood-glucose transmitter (Dexcom #1 ea 06/21/22 07/05/22 Rx G6 Transmitter device) insulin aspart U-100 100 unit/mL 1 sliding scale dose subcut 06/27/22 07/08/22 History subcutaneous solution (Novolog USEASDIRECTD U-100 Insulin aspart) mirabegron 25 mg tablet,extended 25 mg PO DAILY 06/27/22 07/08/22 History release 24 hr (Myrbetriq) Exam Const General: cooperative Neck Neck: supple Resp Effort & Inspection: normal respiratory effort Auscultation: clear to auscultation bilaterally Cardio Rate: regular rate Rhythm: regular rhythm GI Palpation: soft and no masses Neuro General: patient alert, patient awake and patient oriented x3 Results Last Vital Signs Temp 36.5 C 07/08/22 07:30 Pulse 84 07/08/22 07:30 Resp 20 07/08/22 07:30 BP 150/98 H 07/08/22 07:30 Pulse Ox 100 07/08/22 07:30
[2022-07-08] MEDS: Lactated Ringers 1,000 ML 80 ML IV (08:20)
--- NOTE | 2022-07-08 09:32 | ANES.PREOP_ITS ---
General Info Date of Service Date Performed: 07/08/22 Height: 5 ft 8 in Weight: 77.3 kg Body Mass Index (BMI): 25.9 Surgical Procedure: Operation Date: 07/08/22 08:40 Proposed Procedure Side Surgeon p Cystoscopy/Retrograde/Tranuretheral Injection of Botox Bilateral Fred Gonzalez MD Meds Allergies and Home Medications Allergies Allergy/AdvReac Type Severity Reaction Status Date / Time enoxaparin [From Lovenox] AdvReac Mild Itching Unverified 07/08/22 07:38 ketorolac [From Toradol] AdvReac Mild Itching Unverified 07/08/22 07:38 tramadol AdvReac Mild Itching Unverified 07/08/22 07:38 Home Medication Medication Instructions Recorded insulin glargine 100 unit/mL (3 30 unit subcut BID 06/06/22 mL) subcutaneous pen (Lantus Solostar U-100 Insulin) naloxone 4 mg/actuation nasal 4 mg intranasal Q2M PRN #2 ea 06/10/22 spray (Narcan) blood sugar diagnostic #200 ea 06/20/22 blood-glucose meter (OneTouch #1 ea 06/20/22 Ultra2 Meter) blood-glucose meter,continuous #1 ea 06/20/22 (Dexcom G6 Contact Center Associate misc) blood-glucose sensor (Dexcom G6 #3 ea 06/20/22 Sensor device) gabapentin 600 mg tablet 300 - 600 mg PO BID #180 tabs 06/20/22 insulin syringe-needle U-100 0.3 #100 ea 06/20/22 mL 30 lancets 30 gauge (BD Ultra-Fine II #200 ea 06/20/22 Lancets) blood-glucose transmitter (Dexcom #1 ea 06/21/22 G6 Transmitter device) insulin aspart U-100 100 unit/mL 1 sliding scale dose subcut 06/27/22 subcutaneous solution (Novolog USEASDIRECTD U-100 Insulin aspart) mirabegron 25 mg tablet,extended 25 mg PO DAILY 06/27/22 release 24 hr (Myrbetriq) Current Visit Medications: Current Medications Generic Name Dose Route Start Last Admin Trade Name Freq PRN Reason Stop Dose Admin OnabotulinumtoxinA 200 units/ 0 units 07/08/22 06:00 Sodium Chloride 20 ml IJ 07/08/22 16:00 TODAY BALWINDER Ringer's Solution 1,000 mls @ 80 mls/hr 07/08/22 06:00 07/08/22 08:20 IV 08/04/22 23:59 80 mls/hr INFUSION BALWINDER Administration Cefazolin Sodium/Dextrose 2 gm in 50 mls @ 100 mls/hr 07/08/22 06:00 Ancef Duplex IVPB 07/08/22 16:00 PREOP BALWINDER IV Miscellaneous Supplies 1 each 07/08/22 06:00 Iv Access IV 08/04/22 23:59 DIRECTED BALWINDER Sodium Chloride 0 ml 07/08/22 06:00 Normal Saline Flush 10 Ml Syr IV 08/04/22 23:59 PRN PRN Sodium Chloride 0 ml 07/08/22 06:00 Normal Saline 10 Ml Vial IJ 08/04/22 23:59 DIRECTED PRN Sterile Water 0 ml 07/08/22 06:00 Water,Injection,Sterile 10 Ml Vial IJ 08/04/22 23:59 DIRECTED PRN PFSH Active Problems Active Problems: Problem Status Onset Code Neurogenic bladder N31.9 Diabetic gastroparesis E11.43, K31.84 Type 1 diabetes mellitus E10.9 Microscopic hematuria R31.29 Medical History Medical History HERVE (acute kidney injury) Diabetic retinopathy Retinal detachment Surgical History Surgical History H/O detached retina repair History of appendectomy Hx of cholecystectomy S/P foot surgery, left Status post amputation of toe of left foot Tobacco Smoking/Tobacco Use Status: Current every day Tobacco Type: cigarettes Smoking cigarettes per day: 6 Alcohol Alcohol Intake: former Substance Use Substance use: Daily Substance use type: marijuana and other Details: he denies use of heroin or cocaine or other illicit recreational drugs Details: last use of marijuana 07/07/22 afternoon Vital Signs and Lab Results Vital Signs Most Recent Vital Signs in EMR: Most Recent Vital Signs Temp Pulse Resp BP Pulse Ox 36.5 C 84 20 150/98 H 100 07/08/22 07:30 07/08/22 07:30 07/08/22 07:30 07/08/22 07:30 07/08/22 07:30 Point of Care Results Point of Care Results: Finger Stick Blood Glucose 118 07/08/22 08:22 Lab Results Blood Type / Crossmatch: No Data to Display Complete Blood Count: White Blood Count 4.93 10^3/uL (4.4-10.8) 06/10/22 06:30 Red Blood Count 3.31 10^6/uL (4.36-5.78) L 06/10/22 06:30 Hemoglobin 10.1 g/dL (13.5-17.5) L 06/10/22 06:30 Hematocrit 31.0 % (40.0-50.0) L 06/10/22 06:30 Platelet Count 195 10^3/uL (130-400) 06/10/22 06:30 Complete Metabolic Panel: Sodium Level 141 mmol/L (136-145) 06/10/22 06:30 Potassium Level 4.8 mmol/L (3.5-5.1) 06/10/22 06:30 Chloride Level 104 mmol/L (98-107) 06/10/22 06:30 Carbon Dioxide Level 34.8 mmol/L (21.0-32.0) H 06/10/22 06:30 Blood Urea Nitrogen 21 mg/dL (7-18) H 06/10/22 06:30 Creatinine 1.5 mg/dL (0.70-1.30) H 06/10/22 06:30 Estimated GFR/1.73 m2 54.59 (mL/min/1.73m2) 06/10/22 06:30 Magnesium Level 2.4 mg/dL (1.8-2.4) 06/10/22 06:30 Calcium Level 8.2 mg/dL (8.5-10.1) L 06/10/22 06:30 Glucose Level 89 mg/dL (74-106) 06/10/22 06:30 Liver Function Panel: No Data to Display Coagulation Panel: No Data to Display Cardiac Panel: No Data to Display Arterial Blood Gas: No Data to Display Venous Blood Gas: No Data to Display Pancreas Panel: No Data to Display Thyroid Panel: No Data to Display Infectious Disease: 2 No Data to Display Blood Cultures: No Data to Display Toxicology Panel: No Data to Display Anesthesia Assessment and Plan Anesthesia History Personal History: No History of Anesthesia Complications Family History: No Family History of Anesthesia Complications Exercise Tolerance Exercise Tolerance: Metabolic Equivalents>4 Pertinent Negatives Pertinent Negatives: No Symptoms of GERD, No Major Cardiovascular Symptoms or Complaints, No Major Pulmonary Symptoms or Complaints (Cigarette and marijuana smoking daily) and No History of CVA/TIA Cardiac & Pulmonary Exam Cardiac Exam: Normal S1/S2 Heart Sounds Pulmonary Exam: Clear Bilateral Breath Sounds Implantable Cardiac Device Does patient have a Pacemaker or an ICD?: No Airway Exam Known Difficult Airway: No Mallampati Class: 1 Mouth Opening: Normal (> 3cm) Thyromental Distance: Greater than 3 cm Facial Hair: Full Dodd Neck Range of Motion: Full ROM Neck Circumference: Normal Teeth Condition: Generalized Poor Dentition and Loose or Chipped Airway Comments: Top front teeth extremely chipped rotten and fragile ASA Classification ASA Score: ASA 2 Emergency Case?: No NPO Status NPO Status: NPO Clears >2 hours, Solids >8 hours Anesthesia Plan Resuscitation Status: Full Code Anesthesia Technique: General Anesthesia Airway Planned: Natural Airway Monitors Used: Standard Monitors
[2022-07-08 09:37] VITALS: BMI 25.9
--- NOTE | 2022-07-08 09:45 | DI.RAD_ITS ---
Exam(s) XR RETROGRADE IN OR EXAM: XR RETROGRADE IN OR CLINICAL HISTORY: MICROSCOPIC HEMATURIA. TECHNIQUE: Fluoroscopy was provided for the referring physician for guidance retrograde procedure. COMPARISON: CT CT RENAL COLIC WO from 06/06/2022 FINDINGS: Please see procedure note for details. Fluoro time: 12.0 seconds RADIATION DOSE DELIVERED: glen Epstein=2.15 mGy
[2022-07-08] MEDS: ceFAZolin 2 GM/50 ML BAG IVPB (10:05)
[2022-07-08] MEDS: Lidocaine 2% Jelly 6 ML SYR (10:13)
--- NOTE | 2022-07-08 10:31 | PDOC.DSDIS_ITS ---
Discharge Plan Disposition Patient Disposition: HOME Condition: Good Discharge Details Reason For Visit: microscopic hematuria/neurogenic bladder Attending Provider: Fred Gonzalez Primary Care Provider: None,None Home Meds and New Rx's Prescriptions: No Action insulin aspart U-100 [Novolog U-100 Insulin aspart] 100 unit/mL solution 1 sliding scale dose subcut USEASDIRECTD Myrbetriq 25 mg tablet extended release 24 hr 25 mg PO DAILY (DME) Dexcom G6 Event Marketing Assistant Misc See Rx Instructions .Route Qty: 1 3RF Rx Instructions: Continuous glucose monitor (DME) Dexcom G6 Sensor Device See Rx Instructions .Route Qty: 3 1RF Rx Instructions: Continuous glucose monitor (DME) blood-glucose meter [OneTouch Ultra2 Meter] Misc See Rx Instructions .Route Qty: 1 4RF Rx Instructions: Check blood sugar 4 times a day (DME) blood sugar diagnostic Strip See Rx Instructions .ROUTE .MEDSUPPLY Qty: 200 4RF Rx Instructions: Check blood sugar four times a day (DME) lancets [BD Ultra-Fine II Lancets] 30 gauge misc See Rx Instructions .Route Qty: 200 3RF Rx Instructions: Check blood sugar four times a day gabapentin 600 mg tablet 300 - 600 mg PO BID Qty: 180 0RF Rx Instructions: Take half a tablet twice a day for one week then increase to 1 tablet twice a day (DME) insulin syringe-needle U-100 0.3 mL 30 syringe See Rx Instructions .Route Qty: 100 0RF Rx Instructions: As directed insulin glargine [Lantus Solostar U-100 Insulin] 100 unit/mL (3 mL) Insulin Pen 30 unit SUBCUT BID naloxone [Narcan] 4 mg/actuation spray,non-aerosol 4 mg intranasal Q2M PRNQty: 2 0RF Rx Instructions: spray 1 dose into ONE nostril; alternate nostrils w each dose until help arrives (DME) Dexcom G6 Transmitter Device See Rx Instructions .Route Qty: 1 0RF Rx Instructions: As directed Discharge Instructions Additional Instructions: pt does not need to void prior to discharge (he performs self cath at home) no F/U appt needs to be scheduled but ask pt to call and give a progress report in @ 1 week Activity:: Activity as Tolerated Shower/Bathe:: 24 hours Diet:: As Tolerated Discharge Orders Discharge Orders: Discharge Order (Routine); Ordered 07/08/22 Ordered By: Fred Gonzalez DS: Diagnosis Discharge Diagnosis (1) Microscopic hematuria: Status: Acute (2) Neurogenic bladder: Status: Chronic
--- NOTE | 2022-07-08 10:34 | W.PM.OP ---
Date of service: 07/08/22 Time of Service: 10:34 Operative Note Operative Note DATE OF PROCEDURE: 07/08/22 PRE-OP DIAGNOSIS: 1. Microscopic hematuria 2. Neurogenic bladder PROCEDURE: cystoscopy, bilateral retrograde pyelograms, transurethral injection of Botox into detrusor muscle SURGEON: Fred Gonzalez ANESTHESIA TYPE: Local By Surgeon and General:No Airway Refer to Anesthesia Record ESTIMATED BLOOD LOSS: 2 PATHOLOGY: none sent COMPLICATIONS: None Patient was transported to: same day Indications: This is a 32-year-old gentleman who has a history of a neurogenic bladder due to diabetes. He performs self-catheterization. He has suprapubic discomfort which has not responded to Myrbetriq alone. We had been reluctant to use anticholinergics given his history of constipation. He has a history of urinary tract infections and a finding of microscopic hematuria. The hematuria persisted even when the infection cleared. He has had normal imaging studies of the kidneys which showed no solid renal mass and no stones. He presents for cystoscopy with retrograde pyelogram to complete his hematuria work-up. We will inject Botox into the detrusor muscle for his neurogenic bladder as well. Findings: Normal retrograde pyelograms Procedure Description: The patient was brought to the operating room on 07/08/2022. After successful induction of general anesthesia without intubation, he was placed in the dorsal lithotomy position. His genitalia was prepped and draped. 2% Xylocaine jelly was instilled into the urethra to act as a local anesthetic. A 22 [place] cystoscope was passed through the urethra into the bladder. The urethra and bladder were inspected with a 30 degree lens. The pendulous, bulbar and membranous urethra is all appeared normal with no strictures. The bladder neck was entered and the bladder mucosa was inspected. The bladder neck appeared quite high. Both ureteral orifices were identified. They appeared normal in configuration and location. Each orifice was cannulated with a 5 [place] access catheter. A retrograde film was obtained by injecting Omnipaque through the access catheter under fluoroscopic guidance. Both ureters and collecting systems appeared normal with no persistent filling defects. The remainder of the bladder showed no papillary or nodular lesions. We then utilized 200 units of Botox mixed in 20 mL of saline. We injected 1 mL in 20 different locations along the posterior bladder wall. We used a grid configuration of 4 vertical rows and 5 horizontal rows. The bladder was then emptied. The patient tolerated the procedure with no complications.
[2022-07-08 10:48] VITALS: BP 114/75; PULSE 66; RESP 16; TEMP 36.3; O2SAT 97
--- NOTE | 2022-07-08 11:00 | W.ANESPOSTOP ---
Postoperative Evaluation Date, Time and Location Date Performed: 07/08/22 Time Performed: 10:59 Patient Location: Day Surgery Unit Vital Signs Most Recent Imported Vital Signs: Most Recent Vital Signs Temp Pulse Resp BP Pulse Ox 36.3 C L 66 16 114/75 97 07/08/22 10:48 07/08/22 10:48 07/08/22 10:48 07/08/22 10:48 07/08/22 10:48 Most Recent Manually Entered Vital Signs: Adult Blood Pressure: 127/83 Heart Rate: 70 Respirations: 12 Oxygen Saturation (%): 97 Temperature (C): 36.3 C Pain Score (0-10 Scale): 0 Pain Score Most Recent Pain Score: Most Recent Pain Score Pain Level 7 07/08/22 10:48 Assessment Mental Status: Awake (Alert & Oriented to Patient Baseline) Airway and Respiratory Function: Patent airway with normal (patient baseline) respiratory exam Cardiovascular Function: Hemodynamically Stable Hydration Status: Adequately Hydrated Nausea & Vomiting: No Nausea or Vomiting Pain: Pt. Denies Any Pain Peripheral Nerve Block: Patient did not receive a nerve block
[2022-07-08 11:01] VITALS: BP 127/83; PULSE 70; RESP 12; TEMPC 36.3; O2SAT 97
[2022-07-08 11:23] VITALS: BP 125/87; PULSE 70; RESP 16; TEMP 36; O2SAT 99
== END 2022-07-08 11:57 | disposition home or self-care (01) ==
PROVIDERS: Visit Provider Urology
PROC: (CPT 74450; principal; 2022-07-08 08:30)
DX: E11.40 Type 2 diabetes mellitus with diabetic neuropathy, unspecified (principal); N31.8 Other neuromuscular dysfunction of bladder; R31.29 Other microscopic hematuria; E11.43 Type 2 diabetes mellitus with diabetic autonomic (poly)neuropathy; K31.84 Gastroparesis
CPT/HCPCS: 52287; 52005; 74420; J0131; J0585; J0690; J1100; J1885; J2250; J2405

== ENCOUNTER 2023-02-02 06:57 | Emergency (ER) | payer MEDICAID, SELFPAY ==
[2023-02-02] VITALS (12 sets, daily range): BP systolic 104–130; BP diastolic 72–79; PULSE 69–79; RESP 11–21; TEMP 36.6–37.1; O2SAT 98–100
--- NOTE | 2023-02-02 07:00 | RT.EKG_ITS ---
APPROVED REPORT Exam: Resting ECG Reason for Exam: chest pain Patient Location: E HR:72 bpm ECG Measurements Heart Rate 72 AXIS MT 157 P 86 QRSd 87 QRS 79 QT 374 T -7 QTc 408 Conclusion Sinus rhythm...normal P axis, V-rate 60- 99 Nonspecific T abnormalities, lateral leads...T <-0.10mV, I aVL V5 V6. Sinus. Normal axis. No STEMI. I have reviewed and interpreted ECG and agree with software generated interpretation.
--- NOTE | 2023-02-02 07:30 | DI.RAD_ITS ---
Exam(s) XR CHEST 2V PA LATERAL EXAM: XR CHEST 2V PA LATERAL CLINICAL HISTORY: L sided chest pain, r/o acute disease. TECHNIQUE: 2D digital imaging was performed. COMPARISON: No exams were available for comparison FINDINGS: 2 views: Heart size is normal. The mediastinum is not widened. Left lung clear. There is either platelike atelectasis or horizontal vessel in the mid right lung field. Doubtful for infiltrate. No pleural effusions. IMPRESSION: As above but doubtful for significant pulmonary findings. DATA REPOSITORY: RADIATION DOSE DELIVERED:
[2023-02-02] MEDS: Normal Saline 1,000 ML 1000 ML IV (07:48)
[2023-02-02 07:50] LABS: BE (Venous) 0 mmol/L (-2-3); HCO3 (Venous) 27 mmol/L (23-28); O2 Sat (Venous) 69 %; TCO2 (Venous) 25 mmol/L (24-29); pCO2 (Venous) 55 mmHg (41-51); pO2 (Venous) 36 mmHg
[2023-02-02 07:51] LABS: Abs Immature Grans 0.01 10^3/uL (0.0-0.06); Absolute Basophil Count 0.04 10^3/uL (0.0-0.2); Absolute Lymphocyte Count 2.45 10^3/uL (1.2-3.4); Absolute Monocyte Count 0.43 10^3/uL (0.1-0.8); Absolute Neutrophil Count 3.05 10^3/uL (1.2-6.7); Basophils % 0.6; Eosinophils % 3.2; HGB 13.4 g/dL (13.5-17.5); Immature Grans % 0.2; Lymphocytes % 39.6; MCH 31.3 pg (27.0-33.0); MCHC 34.4 % (32.0-36.0); MCV 91 fL (80-95); MPV 10.7 fL (8.0-11.0); Neutrophils % 49.4; Platelet Count 251 10^3/uL (130-400); RBC 4.28 10^6/uL (4.36-5.78); RDW 12.5 % (11.8-14.1); RDW-SD 41.2 fL; WBC 6.18 10^3/uL (4.4-10.8)
[2023-02-02] MEDS: Ondansetron 4 MG/2 ML VIAL IVP (07:52)
--- NOTE | 2023-02-02 07:52 | ED.GENADUL_ITS ---
Discharge Plan Disposition Patient Disposition: Home Condition: Stable Discharge Details Clinical Impression: Type 1 diabetes mellitus, Chest pain ED Provider: Michael Nj Home Meds and New Rx's Prescriptions: Continued Myrbetriq 25 mg tablet extended release 24 hr 25 mg PO DAILY Patient Comments: not taking (DME) Dexcom G6 Software Quality Automation Engineer Misc See Rx Instructions .Route Qty: 1 3RF Rx Instructions: Continuous glucose monitor (DME) Dexcom G6 Sensor Device See Rx Instructions .Route Qty: 3 1RF Rx Instructions: Continuous glucose monitor (DME) blood-glucose meter [OneTouch Ultra2 Meter] Misc See Rx Instructions .Route Qty: 1 4RF Rx Instructions: Check blood sugar 4 times a day (DME) blood sugar diagnostic Strip See Rx Instructions .ROUTE .MEDSUPPLY Qty: 200 4RF Rx Instructions: Check blood sugar four times a day (DME) lancets [BD Ultra-Fine II Lancets] 30 gauge misc See Rx Instructions .Route Qty: 200 3RF Rx Instructions: Check blood sugar four times a day gabapentin 600 mg tablet 600 mg PO TID Qty: 180 0RF Patient Comments: not taking Rx Instructions: Increased to 600mg, 3 times a day on 10/07/22 from previous half a tablet twice a day for one week then increase to 1 tablet twice a day naloxone [Narcan] 4 mg/actuation spray,non-aerosol 4 mg intranasal Q2M PRNQty: 2 0RF Patient Comments: does not have, not taking Rx Instructions: spray 1 dose into ONE nostril; alternate nostrils w each dose until help arrives (DME) Dexcom G6 Transmitter Device See Rx Instructions .Route Qty: 1 0RF Rx Instructions: As directed insulin aspart U-100 [Novolog U-100 Insulin aspart] 100 unit/mL solution 1 sliding scale dose subcut USEASDIRECTD Qty: 20 0RF (DME) insulin syringe-needle U-100 0.3 mL 30 syringe See Rx Instructions .Route Qty: 100 0RF Rx Instructions: As directed insulin glargine [Lantus Solostar U-100 Insulin] 100 unit/mL (3 mL) Insulin Pen 30 unit SUBCUT BID Qty: 15 0RF Discharge Instructions Instructions: Chest Pain (ED) Additional Instructions: your blood work and imaging did not show concerning findings. You were given a one time dose of an antibiotic while here for a urinary tract infection i placed you on our follow up list to see a primary care provider if you feel more ill, have severe worsening pain or fevers return to the emergency department Discharge Data Discharge Date/Time-TO BE ENTERED AT DEPARTURE: 02/02/23 10:15 Medical Decision Making <Zhanna Martinez DO - Last Filed: 02/08/23 12:35> Dr. Martinez 0730 -- 32-year-old male with a history of type 1 diabetes, diabetic retinopathy and neuropathy, neurogenic bladder who presents for vomiting and left-sided chest pain for the past 4 days. Ran out of his insulin 4 days ago. His fingerstick glucose is 118. Patient appears comfortable and nontoxic. His vitals are within normal limits. His EKG notes a rate of 72, sinus, normal axis and no acute ischemic findings. He has no lower extremity edema. His abdomen is soft and nontender. Differential diagnosis includes gastroenteritis, gastritis, influenza, COVID, electrolyte abnormality, chest wall strain. As his glucose is 118 and his vital signs are reassuring, DKA seems less likely. He has no fever, cough, shortness of breath or hypoxia to suggest pneumonia. He has no tachycardia, hypotension, hypoxia or lower extremity edema or pain to suggest PE. His chest pain is reproducible with palpation and movement and likely appears musculoskeletal. There is no overlying rash to suggest shingles. Of note, his left pupil is nonreactive and 3 mm in his right pupil is nonreactive and 2 mm. He reports he had a left retinal detachment with repair a few months ago in [place]. He was also recently diagnosed with a right second toe fracture and this appears consistent with trauma with edema and ecchymosis and no findings to suggest cellulitis or gangrene at this time. Considering his age and history, will obtain screening labs, urinalysis, VBG, chest x-ray, D-dimer and give IV Zofran and fluid bolus. If work-up reassuring and patient feels better, will place on care management's list to establish care with a PCP for management of his type 1 diabetes and referred to orthopedics for management of his right second toe fracture. We will also provide prescriptions for his Humalog and Lantus 0800 -- Case endorsed to Dr. Nj to follow-up on labs and imaging and final disposition. Dr. Nj pt's initial labs and xray unremarkable other than mild herve, ua pending, still has left sided chest pain, d dimer negative, will proceed with noncontrast ct to evaluate for small pneumothorax ua does show evidence of a uti, will provide dose of fosfomycin. CT negative, pain free now. Given 2 days of symptoms do not feel delta troponin indicated, likely musculoskeletal chest pain. He has no pcp, will have care management assist in trying to see a pcp alis to establish care for his diabetes. Return precautions given Medical Records Medical records reviewed: Yes I reviewed the patient's medical records. ECG Data Attestation: I personally reviewed and interpreted this ECG (s) as follows: Interpretation: Rate of 72, sinus, normal axis, no acute ischemic findings. <Michael Nj MD - Last Filed: 02/02/23 09:56> 0730 -- 32-year-old male with a history of type 1 diabetes, diabetic retinopathy and neuropathy, neurogenic bladder who presents for vomiting and left-sided chest pain for the past 4 days. Ran out of his insulin 4 days ago. His fingerstick glucose is 118. Patient appears comfortable and nontoxic. His vitals are within normal limits. His EKG notes a rate of 72, sinus, normal axis and no acute ischemic findings. He has no lower extremity edema. His abdomen is soft and nontender. Differential diagnosis includes gastroenteritis, gastritis, influenza, COVID, e lectrolyte abnormality, chest wall strain. As his glucose is 118 and his vital signs are reassuring, DKA seems less likely. He has no fever, cough, shortness of breath or hypoxia to suggest pneumonia. He has no tachycardia, hypotension, hypoxia or lower extremity edema or pain to suggest PE. His chest pain is reproducible with palpation and movement and likely appears musculoskeletal. There is no overlying rash to suggest shingles. Of note, his left pupil is nonreactive and 3 mm in his right pupil is nonreactive and 2 mm. He reports he had a left retinal detachment with repair a few months ago in [place]. He was also recently diagnosed with a right second toe fracture and this appears consistent with trauma with edema and ecchymosis and no findings to suggest cellulitis or gangrene at this time. Considering his age and history, will obtain screening labs, urinalysis, VBG, chest x-ray, D-dimer and give IV Zofran and fluid bolus. If work-up reassuring and patient feels better, will place on care management's list to establish care with a PCP for management of his type 1 diabetes and referred to orthopedics for management of his right second toe fracture. We will also provide prescriptions for his Humalog and Lantus 0800 -- Case endorsed to Dr. Nj to follow-up on labs and imaging and final disposition. pt's initial labs and xray unremarkable other than mild herve, ua pending, still has left sided chest pain, d dimer negative, will proceed with noncontrast ct to evaluate for small pneumothorax ua does show evidence of a uti, will provide dose of fosfomycin. CT negative, pain free now. Given 2 days of symptoms do not feel delta troponin indicated, likely musculoskeletal chest pain. He has no pcp, will have care management assist in trying to see a pcp alis to establish care for his diabetes. Return precautions given Imaging Data Radiologic Study: Attestation: I personally reviewed and interpreted this imaging study as follows: Imaging: CT Scan Radiologist's impression: no acute findings Radiologic Study #2: Attestation: I personally reviewed and interpreted this imaging study as follows: Imaging: X-Ray Radiologist's impression: no acute findings Lab Data Lab results reviewed: Yes I reviewed the patient's lab results. HPI <Zhanna Martinez, - Last Filed: 02/08/23 12:35> General Mode of arrival: ambulatory . Date/Time Provider Initiated Documentation: 02/02/23 07:17 . Limitations to Documentation: no limitations . Information obtained by: patient . HPI Narrative: Patient is a 32-year-old male with a history of type 1 diabetes, neurogenic bladder, urinary retention, diabetic retinopathy and neuropathy presents for 4 d ays of nausea, vomiting and left-sided chest pain. Patient states the vomiting was initially food and bile and now is mainly clear. Patient states after the vomiting he developed sharp stabbing intermittent left-sided chest pain. He states the pain is worse with deep breath and movement. He has taken ibuprofen for pain without relief. Patient denies any known injury, fever, difficulty breathing, dizziness, abdominal pain, diarrhea or new urinary symptoms. Patient states he was seen at [facility] recently for a right second toe fracture after a traumatic injury and mentioned his chest pain and he states he was told by the provider there that he must want to commit suicide since I ran out of my insulin, so I left there right away . Patient states he ran out of his Humalog sliding scale insulin and some of his Lantus 4 days ago. Patient states he takes on average 20 units of Humalog insulin sliding scale throughout the day and 30 units of Lantus twice daily. He states he has only been taking his Lantus at night and states his last dose was last night. Patient states he checks his sugar occasionally and states his last fingerstick yesterday was 500. Patient states he moved here from [place] 5 months ago and has not yet established care with a PCP. Patient reports that he was seen here recently for a neurogenic bladder and had surgery with Dr. Gonzalez. Patient states he also had a left retinal detachment while living in [place] and had detached retina repair. Patient also reports an allergy to tramadol and Toradol which causes itching. Patient states he cannot take ibuprofen without any adverse reaction. Patient also states he was told in [place] he had an allergic reaction to Lovenox but states he is unsure of the reaction. Related Data Home Medications Medication Instructions Recorded Confirmed naloxone 4 mg/actuation nasal 4 mg intranasal Q2M PRN #2 ea 06/10/22 07/08/22 spray (Narcan) blood sugar diagnostic #200 ea 06/20/22 02/02/23 blood-glucose meter (OneTouch #1 ea 06/20/22 02/02/23 Ultra2 Meter) blood-glucose meter,continuous #1 ea 06/20/22 02/02/23 (Dexcom G6 Software Quality Automation Engineer) blood-glucose sensor (Dexcom G6 #3 ea 06/20/22 02/02/23 Sensor device) lancets 30 gauge (BD Ultra-Fine II #200 ea 06/20/22 02/02/23 Lancets) blood-glucose transmitter (Dexcom #1 ea 06/21/22 02/02/23 G6 Transmitter device) mirabegron 25 mg tablet,extended 25 mg PO DAILY 06/27/22 07/08/22 release 24 hr (Myrbetriq) gabapentin 600 mg tablet 600 mg PO TID #180 tabs 10/31/22 02/02/23 insulin aspart U-100 100 unit/mL 1 sliding scale dose subcut 02/02/23 subcutaneous solution (Novolog USEASDIRECTD #20 mL U-100 Insulin aspart) insulin glargine 100 unit/mL (3 30 unit (0.3 mL) subcut BID #15 mL 02/02/23 mL) subcutaneous pen (Lantus Solostar U-100 Insulin) insulin syringe-needle U-100 0.3 #100 ea 02/02/23 mL 30 Previous Rx's Medication Instructions Recorded naloxone 4 mg/actuation nasal 4 mg intranasal Q2M PRN #2 ea 06/10/22 spray (Narcan) blood sugar diagnostic #200 ea 06/20/22 blood-glucose meter (OneTouch #1 ea 06/20/22 Ultra2 Meter) blood-glucose meter,continuous #1 ea 06/20/22 (Dexcom G6 Software Quality Automation Engineer) blood-glucose sensor (Dexcom G6 #3 ea 06/20/22 Sensor device) lancets 30 gauge (BD Ultra-Fine II #200 ea 06/20/22 Lancets) blood-glucose transmitter (Dexcom #1 ea 06/21/22 G6 Transmitter device) gabapentin 600 mg tablet 600 mg PO TID #180 tabs 10/31/22 insulin aspart U-100 100 unit/mL 1 sliding scale dose subcut 02/02/23 subcutaneous solution (Novolog USEASDIRECTD #20 mL U-100 Insulin aspart) insulin glargine 100 unit/mL (3 30 unit (0.3 mL) subcut BID #15 mL 02/02/23 mL) subcutaneous pen (Lantus Solostar U-100 Insulin) insulin syringe-needle U-100 0.3 #100 ea 02/02/23 mL 30 Allergies Allergy/AdvReac Type Severity Reaction Status Date / Time enoxaparin [From Lovenox] AdvReac Mild Itching Unverified 02/02/23 07:15 ketorolac [From Toradol] AdvReac Mild Itching Unverified 02/02/23 07:15 tramadol AdvReac Mild Itching Unverified 02/02/23 07:15 General Stated Complaint: Chest Pain SAQIB: 2 Review of Systems <Zhanna Martinez DO - Last Filed: 02/08/23 12:35> All systems reviewed & are unremarkable except as noted in HPI and below Constitutional Constitutional: Reports as per HPI, Denies chills and Denies fever(s) Eyes Eyes: Denies blurry vision ENT Ears, Nose, Mouth, and Throat: Denies dizziness, Denies sore throat and Denies throat swelling Cardiovascular Cardiovascular: Reports chest pain and Denies dyspnea Respiratory Respiratory: Denies cough and Denies dyspnea Gastrointestinal Gastrointestinal: Denies abdominal pain, Denies diarrhea, Reports nausea and Reports vomiting Genitourinary Genitourinary: Denies hematuria and Denies dysuria Musculoskeletal Musculoskeletal: Denies back pain and Denies numbness Integumentary/Breasts Skin/Breast: Denies lesions and Denies rash Neurologic Neurologic: Denies dizziness, Denies localized weakness and Denies numbness Allergic/Immunologic Allergic/Immunologic: Denies throat swelling PFSH <Zhanna Martinez, - Last Filed: 02/08/23 12:35> All Active Problems (Updated 02/02/23 @ 09:53 by Michael Nj MD) Chest pain (Acute) Community acquired pneumonia of right upper lobe of lung (Acute ~10/07/22) Diabetic ketoacidosis without coma associated with type 1 diabetes mellitus (Acute) Neurogenic bladder (Chronic) Diabetic gastroparesis (Chronic) Type 1 diabetes mellitus (Chronic) Microscopic hematuria (Acute) Medical History (Updated 02/02/23 @ 09:53 by Michael Nj MD) HERVE (acute kidney injury) Diabetic retinopathy Retinal detachment Urinary retention Surgical History H/O detached retina repair History of appendectomy Hx of cholecystectomy S/P foot surgery, left Status post amputation of toe of left foot Family History Father Alcohol use disorder Mother Multiple myeloma Hypothyroidism (acquired) Sister Hypothyroidism (acquired) Maternal Grandfather , age 60 from [place] Heart disease Social History Smoking/Tobacco Use Status: Current every day Tobacco Type: cigarettes Smoking risk assessment performed?: Yes Alcohol Intake: former Drug use: Daily Substance use type: marijuana Details: last use of marijuana last night Household members: family and other Details: lives w/ brother and maternal grandmother in [place], [place] Housing: house Do you feel safe at home: Yes Do you feel safe in your relationship?: Yes Additional Social history: unable to assess privately 07/07/22 Exam <Zhanna Martinez DO - Last Filed: 02/08/23 12:35> Const General: cooperative, healthy appearing and no acute distress [facility] Head: normal to inspection Face and sinus: normal facial exam Eyes General: appearance normal, both eyes and all related structures Pupils: not reactive bilaterally and pupil size on the right 2 and on the left 3 EOM: EOM intact bilaterally Neck Neck: normal visual inspection and No submandibular swelling Lymphatic: no lymphadenopathy noted Chest Chest: normal inspection of the chest Chest/axillae images: 1. Localized tenderness to palpation to left lateral chest. There is no erythema, edema, ecchymosis, rash or lesions. Resp Effort & Inspection: normal respiratory effort and able to speak in complete sentences Auscultation: clear to auscultation bilaterally Cardio Rate: regular rate Rhythm: regular rhythm GI Inspection: normal to inspection Palpation: soft, not firm, not rigid and nontender Auscultation: normal bowel sounds Male General Exam: Yes normal external exam Back/Spine/Pelvis Thoracic/Lumbar Spine: thoracic and lumbar spine normal to inspection Pelvis: no pain with anterior-posterior compression Skin General skin exam: no rashes or lesions noted Neuro General: patient alert, patient awake and patient oriented x3 Cognition: normal cognition Speech: speech normal Motor: muscle tone normal throughout Sensory Exam: no sensory deficits noted Extrem General: full ROM, capillary refill normal and no edema Ankle/foot/toe images: 1. Edema and ecchymosis of right second toe. Limitation of range of motion secondary to pain. Psych Appearance: grossly normal Mental Status: mental status grossly normal Speech and Movement: speech and movement normal Affect: normal affect Course <Zhanna Martinez DO - Last Filed: 02/08/23 12:35> Vital Signs Vital signs: Vital Signs Temperature 97.9 F 02/02/23 07:01 Pulse 76 02/02/23 07:01 Respiratory Rate 16 02/02/23 07:01 Blood Pressure 130/73 02/02/23 07:01 Pulse Oximetry 99 02/02/23 07:01 Temperature 97.9 F 02/02/23 07:01 Pulse 76 02/02/23 07:01 Respiratory Rate 16 02/02/23 07:06 Respiratory Effort Normal, Non-Labored 02/02/23 07:06 Respiratory Depth Normal 02/02/23 07:06 Respiratory Pattern Normal 02/02/23 07:06 Blood Pressure 130/73 02/02/23 07:01 Pulse Oximetry 99 02/02/23 07:01 Oxygen Delivery Method Room Air 02/02/23 07:01 Oxygen Flow Rate 0 02/02/23 07:01 Pain Level 7 02/02/23 07:01 Lab/Test Results Lab/Test Results: Laboratory Tests Range/Units 02/02/23 07:28 VBG pH (7.31-7.41) 7.30 L VBG pCO2 (41-51) mmHg 55 H VBG pO2 mmHg 36 VBG HCO3 (23-28) mmol/L 27 VBG Total CO2 (24-29) mmol/L 25 VBG O2 Saturation % 69 VBG Base Excess (-2-3) mmol/L 0 Sign Out <Zhanna Martinez DO - Last Filed: 02/08/23 12:35> Sign Out Data: Sign Out Comment: Vomiting and left-sided chest pain for 4 days. Ran out of his insulin recently. Follow-up on labs and imaging and final disposition. If work-up negative and able to discharge home, will need refills of his Humalog and Lantus and establish care with a PCP for management of his type 1 diabetes and for referral to orthopedics for a recent right second toe fracture. Last updated by Zhanna Martinez DO at 02/02/23 07:53
[2023-02-02 08:09] LABS: ALT 60 U/L (16-63); AST 43 U/L (15-37); Albumin 3.8 g/dL (3.4-5.0); Alkaline Phosphatase 96 U/L (46-116); Anion Gap 10.4 mmol/L (3-11); BUN 26 mg/dL (7-18); Bilirubin, Total 0.5 mg/dL (0.2-1.0); CO2 27.6 mmol/L (21.0-32.0); CREATININE 2.1 mg/dL (0.70-1.30); Calcium 8.9 mg/dL (8.5-10.1); Chloride 102 mmol/L (98-107); Estimated GFR 42.36 (mL/min/1.73m2); Glucose 150 mg/dL (74-106); Magnesium 2.2 mg/dL (1.8-2.4); Potassium 3.9 mmol/L (3.5-5.1); Sodium 140 mmol/L (136-145); Total Protein 7.1 g/dL (6.4-8.2); Troponin I < 50 ng/L (<or=60)
[2023-02-02 08:21] LABS: D-Dimer 310 ng/mlFEU (<500)
[2023-02-02] MEDS: Aspirin 325 MG TAB PO (08:22)
[2023-02-02] MEDS: ACETAMINOPHEN 1,000 MG/100 ML BTL 400 MG IVPB (08:23)
--- NOTE | 2023-02-02 08:29 | DI.VRAD_ITS ---
PROCEDURE INFORMATION: Exam: XR Chest Exam date and time: 02/02/2023 8:05 AM Age: 32 years old Clinical indication: Pain; Left-sided TECHNIQUE: Imaging protocol: Radiologic exam of the chest. Views: 2 views. COMPARISON: CT RENAL COLIC WO 06/06/2022 12:56 PM FINDINGS: Lungs: Chronic interstitial prominence. No consolidation. Pleural spaces: Unremarkable. No pleural effusion. No pneumothorax. Heart/Mediastinum: Unremarkable. No cardiomegaly. Bones/joints: Unremarkable. Mild gaseous distention in the upper abdomen Surgical clips right upper quadrant IMPRESSION: No acute findings. Dictated and Authenticated by: Pawel Ferrell MD. Ordering:KEVIN Chao MD
[2023-02-02 08:33] LABS: COVID-19 PCR Negative (Negative); Influenza A PCR Negative (Negative); Influenza B PCR Negative (Negative); RSV PCR Negative (Negative)
[2023-02-02 08:42] LABS: Bilirubin Negative (Negative); Blood Negative (Negative); Clarity Clear (Clear); Glucose 500 mg/dL (Negative); Ketones Negative (Negative); Leukocyte Esterase Negative (Negative); Nitrite Negative (Negative); Specific Gravity >= 1.030 (1.005-1.025); Urobilinogen 0.2 mg/dL (Up to 0.2); pH 5.5 (5-8)
[2023-02-02 08:43] LABS: Source Nasopharynx
[2023-02-02 08:53] LABS: Bacteria Many HPF (Negative); C & S Indicated? Yes; Casts 0-2 Hyaline LPF (Negative); Crystals Negative HPF (Negative); Epithelial Cells Rare HPF (Negative); Mucus Trace (Negative); RBC 0-2 HPF (0-2)
--- NOTE | 2023-02-02 09:00 | DI.CT_ITS ---
Exam(s) CT CHEST WO EXAM: CT CHEST WO CLINICAL HISTORY: left sided chest pain, ?ptx. TECHNIQUE: Multi planar reconstructions were performed. CONTRAST MATERIAL: None COMPARISON: CT CT RENAL COLIC WO from 06/06/2022 FINDINGS: CHEST: LUNGS: Lungs are clear. No infiltrates nor pleural effusions. No significant nodules. No findings in the trachea and mainstem bronchi. MEDIASTINUM: There is no obvious hilar nor mediastinal adenopathy. Visualized thyroid unremarkable.No obvious axillary adenopathy CARDIAC: Heart size is normal. There is no pericardial effusion.Caliber of the thoracic aorta is wit hin normal limits. VISUALIZED UPPER ABDOMEN:Gallbladder surgically absent. There is circumferential mural calcification noted in the superior mesenteric artery a few cm distal to its origin as seen on the lower most imag e of this chest CT scan. This is abnormal in a 32-year-old patient. OSSEOUS: No significant osseous lesions.. IMPRESSION: 1. No acute findings in the chest on this non few study. 2. Incidentally noted is circumferential calcification in the superior mesenteric artery in this 32-y ear-old patient. This may be significant incidental finding at this is un usual at this age group. 3. RADIATION DOSE DELIVERED: 362.59mGy.cm Total DLP DATA REPOSITORY: All CT scans at this facility are submitted to the National Radiology Data Registry (NRDR) Dose Index Registry (DIR) with the [employer] ([employer]). RADIATION OPTIMIZATION: All CT scans at this facility use at least one of these dose optimization te chniques: automated exposure control; mA and/or kV adjustment per patient size (includes targeted exa ms where dose is matched to clinical indication); or iterative reconstruction.
[2023-02-02] MEDS: HYDROmorphone 2 MG/ML SYR 1 MG IVP (09:16)
[2023-02-02 09:41] LABS: *AMPHETAMINES SCREEN URINE Negative (Negative); *BARBITURATES SCREEN URINE Negative (Negative); *BENZODIAZEPINES SCREEN URINE Negative (Negative); Cannabinoids THC Positive (Negative); Cocaine Screen,Urine Negative (Negative); METHADONE URINE SCREEN Negative (Negative); OPIATES URINE SCREEN Negative (Negative)
[2023-02-02 09:42] LABS: Tricyclic Antidepressants Negative (Negative)
--- NOTE | 2023-02-02 09:44 | DI.VRAD_ITS ---
PROCEDURE INFORMATION: Exam: CT Chest Without Contrast; Diagnostic Exam date and time: 02/02/2023 9:22 AM Age: 32 years old Clinical indication: Other: Left sided chest pain, ? ptx TECHNIQUE: Imaging protocol: Diagnostic computed tomography of the chest without contrast. 3D rendering (Not supervised by radiologist): MIP and/or 3D reconstructed images were created by the technologist. COMPARISON: CR XR CHEST 2V PA LATERAL 02/02/2023 8:05 AM FINDINGS: Lungs: Unremarkable. No consolidation. No masses. Pleural spaces: Unremarkable. No pneumothorax. No pleural effusion. Heart: Unremarkable. No cardiomegaly. No pericardial effusion. Lymph nodes: Unremarkable. No enlarged lymph nodes. Vasculature: Unremarkable. No aortic aneurysm. Gallbladder and bile ducts: There are clips in the gallbladder fossa, post cholecystectomy. Bones/joints: Unremarkable. No acute fracture. Soft tissues: Unremarkable. IMPRESSION: No acute findings. Dictated and Authenticated by: William Cano MD. Ordering:CLARITZA Rodriguez MD
[2023-02-02] MEDS: Fosfomycin Tromethamine 3 GM PACKET PO (10:07)
--- NOTE | 2023-02-02 13:05 | NUR.NOTE ---
Referral to [facility] per Dr. Nj for a PCP.Nursing Note:
--- NOTE | 2023-02-05 08:39 | NUR.NOTE ---
Addendum entered by Mansi Castelan 02/06/23 08:21: Accessed chart to look up whether or not on antibiotic. Original Note: Nursing Note: Accessed chart to look up whether or not on antibiotic.
--- NOTE | 2023-02-06 09:05 | NUR.NOTE ---
Addendum entered by Mansi Castelna 02/06/23 11:00: New culture result printed and mailed with letter from Dr. Horn to patient. Original Note: Nursing Note: Accessed pt chart to get his phone number. Message left for patient to call the ED regarding his urine culture result.
== END 2023-02-02 10:15 | disposition home or self-care (01) ==
PROVIDERS: Physician Assistant; Emergency Provider Emergency Medicine
DX: E10.40 Type 1 diabetes mellitus with diabetic neuropathy, unspecified (principal); R07.9 Chest pain, unspecified; M79.81 Nontraumatic hematoma of soft tissue; R60.0 Localized edema; Z79.4 Long term (current) use of insulin; Z20.822 Contact with and (suspected) exposure to COVID-19; N39.0 Urinary tract infection, site not specified; B95.2 Enterococcus as the cause of diseases classified elsewhere; R11.10 Vomiting, unspecified; T38.3X6A Underdosing of insulin and oral hypoglycemic [antidiabetic] drugs, initial encounter; Z91.138 Patient's unintentional underdosing of medication regimen for other reason; E10.319 Type 1 diabetes mellitus with unspecified diabetic retinopathy without macular edema
CPT/HCPCS: 36416; 71250; 80053; 80307; 82805; 82962; 87077; 87637; 93005; 96361; 96374; 96375; 99284; 71046; 81003; 81015; 83735; 84484; 85025; 85379; 87086; 87186; 93010; J0131; J1170; J2405; J3490

== ENCOUNTER 2023-09-22 10:38 | Emergency (ER) | payer MEDICAID, SELFPAY ==
[2023-09-22 10:41] VITALS: BP 140/65; PULSE 74; RESP 15; TEMP 36; O2SAT 100
--- NOTE | 2023-09-22 10:45 | RT.EKG_ITS ---
APPROVED REPORT Exam: Resting ECG Reason for Exam: chest pain Patient Location: E HR:69 bpm ECG Measurements Heart Rate 69 AXIS UT 170 P 80 QRSd 88 QRS 78 QT 390 T 69 QTc 419 Conclusion Sinus rhythm...normal P axis, V-rate 60- 99
[2023-09-22 11:27] LABS: Abs Immature Grans 0.02 10^3/uL (0.0-0.06); Absolute Basophil Count 0.05 10^3/uL (0.0-0.2); Absolute Eosinophil Count 0.19 10^3/uL (0.0-0.7); Absolute Lymphocyte Count 1.15 10^3/uL (1.2-3.4); Absolute Monocyte Count 0.28 10^3/uL (0.1-0.8); Absolute Neutrophil Count 3.31 10^3/uL (1.2-6.7); BE (Venous) 3 mmol/L (-2-3); Eosinophils % 3.8; HCO3 (Venous) 29 mmol/L (23-28); HCT 35.5 % (40.0-50.0); HGB 12.3 g/dL (13.5-17.5); Immature Grans % 0.4; MCH 31.5 pg (27.0-33.0); MCHC 34.6 % (32.0-36.0); MCV 91 fL (80-95); MPV 10.7 fL (8.0-11.0); Monocytes % 5.6; Neutrophils % 66.2; O2 Sat (Venous) 62 %; Platelet Count 210 10^3/uL (130-400); RDW 12.6 % (11.8-14.1); RDW-SD 41.6 fL; TCO2 (Venous) 27 mmol/L (24-29); pCO2 (Venous) 53 mmHg (41-51); pH (Venous) 7.35 (7.31-7.41); pO2 (Venous) 32 mmHg
[2023-09-22] MEDS: Droperidol 5 MG/2 ML VIAL 1.25 MG IVP (11:27)
--- NOTE | 2023-09-22 11:27 | W.ED.GENAD ---
Discharge Plan Disposition Patient Disposition: Against Medical Advice Condition: Stable Discharge Details Clinical Impression: Hyperglycemia Primary Care Provider: None,None ED Provider: Emiliano Reese Home Meds and New Rx's Prescriptions: Continued (DME) Dexcom G6 Operations Recruiter Misc See Rx Instructions .Route Qty: 1 3RF Rx Instructions: Continuous glucose monitor (DME) Dexcom G6 Sensor Device See Rx Instructions .Route Qty: 3 1RF Rx Instructions: Continuous glucose monitor (DME) blood-glucose meter [OneTouch Ultra2 Meter] Misc See Rx Instructions .Route Qty: 1 4RF Rx Instructions: Check blood sugar 4 times a day (DME) blood sugar diagnostic Strip See Rx Instructions .ROUTE .MEDSUPPLY Qty: 200 4RF Rx Instructions: Check blood sugar four times a day (DME) lancets [BD Ultra-Fine II Lancets] 30 gauge misc See Rx Instructions .Route Qty: 200 3RF Rx Instructions: Check blood sugar four times a day (DME) Dexcom G6 Transmitter Device See Rx Instructions .Route Qty: 1 0RF Rx Instructions: As directed insulin aspart U-100 [Novolog U-100 Insulin aspart] 100 unit/mL solution 1 sliding scale dose subcut USEASDIRECTD Qty: 20 0RF (DME) insulin syringe-needle U-100 0.3 mL 30 syringe See Rx Instructions .Route Qty: 100 0RF Rx Instructions: As directed insulin glargine [Lantus Solostar U-100 Insulin] 100 unit/mL (3 mL) Insulin Pen 30 unit SUBCUT BID Qty: 15 0RF Discharge Instructions Instructions: Diabetic Hyperglycemia (ED) Additional Instructions: You were seen in the emergency department for your abnormal lab work by [facility], they were concerned for DKA, does not appear that you are in DKA but our work-up is not complete, you stated you wanted to leave AGAINST MEDICAL ADVICE and you are of sound mind to do so. There are risks involved with incomplete work-up for diabetic ketoacidosis including and coma. Please return to the emergency department should you experience any worsening of your health and have any emergent concerns like nausea, weakness, fever, shakiness, chest pain, shortness of breath. Discharge Data Discharge Date/Time-TO BE ENTERED AT DEPARTURE: 09/22/23 11:50 Medical Decision Making This dictation utilizes [id number] dictation software and may contain unedited grammatical errors. 33 y/o M presents to ED today with a chief complaint of increased glucose readings after a respiratory illness in the setting of t1DM. Onset and characteristics include mild nausea, seen at [facility] a few days ago with labs showing increased glucose, called by UC provider to present to ED. Patients' medical history: t1DM, retinal detachment, diabetic retinopathy, HERVE, hx appendectomy/cholecystectomy. Family and social history: noncontributory. Pertinent exam findings / vital signs include no abnormal respirations, nonlabored respirations, nontoxic vitals, benign abdomen, nontachycardic, neuro intact. Differential / pathologies of concern include Hyperglycemia, Diabetic Ketoacidosis, Viral Syndrome. Diagnostic studies of: -CBC, CMP, VBG, Lactate, Lipase. -CMP shows no anion gap, mild high potassium -VBG no acidosis -Lactate WNL -CBC no leukocytosis -glucose 473 -liapse wnl Interventions of: -IV Normal Saline Bolus w/ plan to re-check glucose. ED Course/Assessment/Plan: 33-year-old male with type 1 diabetes presents to the ED for high glucose readings outpatient lab studies. He is not in diabetic ketoacidosis, was diluting it with normal saline but he states that a family member got into a motor vehicle accident and he had to leave urgently. He did sign out AGAINST MEDICAL ADVICE as he had some electrolyte disturbances that were not fully worked up. The patient is of sound mind and I do believe that he will return should he experience any deterioration. He did sign AMA paperwork. Findings not consistent with DKA. Disposition of Hyperglycemia. Patient verbalized understanding of the plan and return to ED criteria and engaged in shared decision making. Medical Records Medical records reviewed: Yes I reviewed the patient's medical records. Lab Data Lab results reviewed: Yes I reviewed the patient's lab results. Labs: Laboratory Tests Range/Units 09/22/23 09/22/23 11:20 11:20 WBC (4.4-10.8) 10^3/uL 5.00 RBC (4.36-5.78) 10^6/uL 3.90 L Hgb (13.5-17.5) g/dL 12.3 L Hct (40.0-50.0) % 35.5 L MCV (80-95) fL 91 MCH (27.0-33.0) pg 31.5 MCHC (32.0-36.0) % 34.6 RDW (11.8-14.1) % 12.6 Plt Count (130-400) 10^3/uL 210 MPV (8.0-11.0) fL 10.7 Immature Gran % 0.4 Neutrophils % 66.2 Lymphocytes % 23.0 Monocytes % 5.6 Eosinophils % 3.8 Basophils % 1.0 Nucleated RBC % (0.0-0.3) % 0.0 Absolute Neutrophils (1.2-6.7) 10^3/uL 3.31 Absolute Lymphocytes (1.2-3.4) 10^3/uL 1.15 L Absolute Monocytes (0.1-0.8) 10^3/uL 0.28 Absolute Eosinophils (0.0-0.7) 10^3/uL 0.19 Absolute Basophils (0.0-0.2) 10^3/uL 0.05 VBG pH (7.31-7.41) 7.35 VBG pCO2 (41-51) mmHg 53 H VBG pO2 mmHg 32 VBG HCO3 (23-28) mmol/L 29 H VBG Total CO2 (24-29) mmol/L 27 VBG O2 Saturation % 62 VBG Base Excess (-2-3) mmol/L 3 Sodium (136-145) mmol/L 132 L Potassium (3.5-5.1) mmol/L 5.4 H Chloride (98-107) mmol/L 98 Carbon Dioxide (21.0-32.0) mmol/L 28.2 Anion Gap (3-11) mmol/L 5.8 BUN (7-18) mg/dL 33 H Creatinine (0.70-1.30) mg/dL 1.4 H Est GFR (CKD-EPI 2020) (mL/min/1.73m2) 68.49 Glucose (74-106) mg/dL 473 H Calcium (8.5-10.1) mg/dL 9.2 Magnesium (1.8-2.4) mg/dL 2.1 Total Bilirubin (0.2-1.0) mg/dL 0.5 AST (15-37) U/L 63 H ALT (16-63) U/L 101 H Alkaline Phosphatase (46-116) U/L 134 H Troponin I (<or=60) ng/L < 50 Total Protein (6.4-8.2) g/dL 7.0 Albumin (3.4-5.0) g/dL 3.5 Lipase (16-77) U/L 33 Cancelled HPI General Date/Time Provider Initiated Documentation: 09/22/23 10:50. HPI Narrative: 33 year-old male presents to ED today by POV/ambulating with a chief complaint of sent by [facility] after having labs drawn days ago which show elevated blood glucose levels in the setting of chronic t1DM, with onset after some sort of URI illness had gone through his household. Quality described as high blood sugars, some nausea without vomiting, known gastroparesis, no radiation to respiratory distress, fever, syncope. Severity is described as 7-8/10. Palliating factors include has been taking increased dose of insulin. Provoking factors include URI illness. Patient not anticoagulated. Related Data Home Medications Medication Instructions Recorded Confirmed blood sugar diagnostic #200 ea 06/20/22 09/22/23 blood-glucose meter (OneTouch #1 ea 06/20/22 09/22/23 Ultra2 Meter) blood-glucose meter,continuous #1 ea 06/20/22 09/22/23 (Dexcom G6 Operations Recruiter) blood-glucose sensor (Dexcom G6 #3 ea 06/20/22 09/22/23 Sensor device) lancets 30 gauge (BD Ultra-Fine II #200 ea 06/20/22 09/22/23 Lancets) blood-glucose transmitter (Dexcom #1 ea 06/21/22 09/22/23 G6 Transmitter device) insulin aspart U-100 100 unit/mL 1 sliding scale dose subcut 02/02/23 09/22/23 subcutaneous solution (Novolog USEASDIRECTD #20 mL U-100 Insulin aspart) insulin glargine 100 unit/mL (3 30 unit (0.3 mL) subcut BID #15 mL 02/02/23 09/22/23 mL) subcutaneous pen (Lantus Solostar U-100 Insulin) insulin syringe-needle U-100 0.3 #100 ea 02/02/23 09/22/23 mL 30 Previous Rx's Medication Instructions Recorded blood sugar diagnostic #200 ea 06/20/22 blood-glucose meter (OneTouch #1 ea 06/20/22 Ultra2 Meter) blood-glucose meter,continuous #1 ea 06/20/22 (Dexcom G6 Operations Recruiter) blood-glucose sensor (Dexcom G6 #3 ea 06/20/22 Sensor device) lancets 30 gauge (BD Ultra-Fine II #200 ea 06/20/22 Lancets) blood-glucose transmitter (Dexcom #1 ea 06/21/22 G6 Transmitter device) insulin aspart U-100 100 unit/mL 1 sliding scale dose subcut 02/02/23 subcutaneous solution (Novolog USEASDIRECTD #20 mL U-100 Insulin aspart) insulin glargine 100 unit/mL (3 30 unit (0.3 mL) subcut BID #15 mL 02/02/23 mL) subcutaneous pen (Lantus Solostar U-100 Insulin) insulin syringe-needle U-100 0.3 #100 ea 02/02/23 mL 30 Allergies Allergy/AdvReac Type Severity Reaction Status Date / Time enoxaparin [From Lovenox] AdvReac Mild Itching Unverified 09/22/23 10:48 ketorolac [From Toradol] AdvReac Mild Itching Unverified 09/22/23 10:48 tramadol AdvReac Mild Itching Unverified 09/22/23 10:48 General Stated Complaint: Diabetes SAQIB: 2 Review of Systems All systems reviewed & are unremarkable except as noted in HPI and below PFSH All Active Problems (Updated 09/22/23 @ 11:51 by FISH Farris) Hyperglycemia (Acute) Community acquired pneumonia of right upper lobe of lung (Acute ~10/07/22) Diabetic ketoacidosis without coma associated with type 1 diabetes mellitus (Acute) Neurogenic bladder (Chronic) Diabetic gastroparesis (Chronic) Type 1 diabetes mellitus (Chronic) Microscopic hematuria (Acute) Medical History (Updated 09/22/23 @ 11:51 by FISH Farris) Urinary retention Retinal detachment Diabetic retinopathy HERVE (acute kidney injury) Surgical History H/O detached retina repair Hx of cholecystectomy History of appendectomy Status post amputation of toe of left foot S/P foot surgery, left Family History Father Alcohol use disorder Mother Multiple myeloma Hypothyroidism (acquired) Sister Hypothyroidism (acquired) Maternal Grandfather , age 60 from [place] Heart disease Social History Smoking/Tobacco Use Status: Current every day Tobacco Type: cigarettes Smoking risk assessment performed?: Yes Alcohol Intake: former Drug use: Daily Substance use type: marijuana Details: last use of marijuana last night Household members: family and other Details: lives w/ brother and maternal grandmother in [place], [place] Housing: house Do you feel safe at home: Yes Do you feel safe in your relationship?: Yes Additional Social history: unable to assess privately 07/07/22 Exam Narrative Exam Narrative: GENERAL APPEARANCE: Well-nourished, non-toxic, awake and alert, atraumatic, no acute distress. SKIN: Warm, pink, dry, intact, without rashes/lesions/ulcerations. HEAD: Normocephalic, atraumatic, normal hair distribution for gender/age. EYES: Pupils PERRLA, EOMs intact without nystagmus, normal conjunctiva, no exudates on lids/lashes. ENT: Nares patent, no circumoral cyanosis, no facial swelling NECK: Supple, trachea midline, painless cervical ROM. LUNGS/CHEST: Lungs CTA bilaterally - no rhonchi/rales/wheezes diffusely, non-labored respirations, normal A/P diameter, symmetrical expansion, no chest wall deformity HEART (CV/PV): Regular rate and rhythm without murmur, no peripheral edema, no JVD. ABDOMEN: Soft, non-distended, no guarding, no tenderness. MSK: Normal ROM, no swelling/deformity to bilateral UEs or LEs, moving all extremities without weakness, no cyanosis, spine midline without tenderness, normal curvature. NEURO: Mental Status AAOx4 - alert to person, place, time, events No facial droop, no forehead involvement. Motor: No focal weakness - strength 5/5 in bilateral UEs and LEs, proximal and distal, symmetric. Sensory: sensation intact to light touch globally. Gait normal: patient ambulated without ataxia into ED room. PSYCH: euthymic, cooperative, pleasant, appropriate speech Course Vital Signs Vital signs: Vital Signs Temperature 36.0 C L 09/22/23 10:41 Pulse 74 09/22/23 10:41 Respiratory Rate 15 09/22/23 10:41 Blood Pressure 140/65 12/04/23 10:41 Pulse Oximetry 100 09/22/23 10:41 Temperature 36.0 C L 09/22/23 10:41 Temperature Source Oral 09/22/23 10:41 Pulse 74 09/22/23 10:41 Respiratory Rate 15 09/22/23 10:41 Respiratory Effort Short of Breath 09/22/23 10:48 Blood Pressure 140/65 09/22/23 10:41 Blood Pressure Position Sitting 09/22/23 10:41 Pulse Oximetry 100 09/22/23 10:41 Oxygen Delivery Method Room Air 09/22/23 10:41 Oxygen Flow Rate 0 09/22/23 10:41 Pain Level 6 09/22/23 10:41
[2023-09-22] MEDS: Normal Saline 1,000 ML 1000 ML IV (11:28)
[2023-09-22 11:47] LABS: ALT 101 U/L (16-63); AST 63 U/L (15-37); Albumin 3.5 g/dL (3.4-5.0); Alkaline Phosphatase 134 U/L (46-116); Anion Gap 5.8 mmol/L (3-11); BUN 33 mg/dL (7-18); Bilirubin, Total 0.5 mg/dL (0.2-1.0); CO2 28.2 mmol/L (21.0-32.0); CREATININE 1.4 mg/dL (0.70-1.30); Calcium 9.2 mg/dL (8.5-10.1); Chloride 98 mmol/L (98-107); Estimated GFR 68.49 (mL/min/1.73m2); Glucose 473 mg/dL (74-106); Lipase 33 U/L (16-77); Magnesium 2.1 mg/dL (1.8-2.4); Potassium 5.4 mmol/L (3.5-5.1); Sodium 132 mmol/L (136-145)
[2023-09-22 11:48] LABS: Troponin I < 50 ng/L (<or=60)
== END 2023-09-22 11:50 | disposition left against medical advice (07) ==
PROVIDERS: Emergency Provider Physician Assistant
DX: E10.65 Type 1 diabetes mellitus with hyperglycemia (principal); E10.319 Type 1 diabetes mellitus with unspecified diabetic retinopathy without macular edema; Z53.29 Procedure and treatment not carried out because of patient's decision for other reasons
CPT/HCPCS: 80053; 82805; 82962; 83690; 93005; 96361; 96374; 99283; 83735; 84484; 85025; 93010; J1790